=== PATIENT | male | born 2000 | race Caucasian/White ===

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

== ENCOUNTER → 2018-05-16 | Outpatient (CLI) | payer MEDICARE, OTHER ==
[2018-05-16 15:48] LABS: BASOPHILS ABSOLUTE AUTO 0.03 K/mm3 (0.00-0.23); BASOPHILS PERCENT AUTO 1 % (0-2); EOSINOPHILS ABSOLUTE AUTO 0.11 K/mm3 (0.00-0.68); EOSINOPHILS PERCENT AUTO 2 % (0-6); Hematocrit 42.9 % (37.0-53.0); Hemoglobin 13.9 g/dL (13.5-17.5); IMMATURE GRAN ABSOLUTE AUTO 0.01 K/mm3 (0.00-0.10); IMMATURE GRAN PERCENT AUTO 0 % (0-1); LYMPHOCYTES ABSOLUTE AUTO 1.73 K/mm3 (0.84-5.20); LYMPHOCYTES PERCENT AUTO 28 % (21-46); MONOCYTES ABSOLUTE AUTO 0.71 K/mm3 (0.16-1.47); MONOCYTES PERCENT AUTO 12 % (4-13); Mean Corpuscular HGB 26.9 pg (26.0-34.0); Mean Corpuscular HGB Conc 32.4 g/dL (31.5-36.5); Mean Corpuscular Volume 83 fL (80-100); Mean Platelet Volume 10.1 fL (9.1-12.4); NEUTROPHILS ABSOLUTE AUTO 3.54 K/mm3 (1.96-9.15); NEUTROPHILS PERCENT AUTO 58 % (41-73); Platelet Count 299 K/mm3 (150-400); RDW Coefficient Variation 19.8 % (11.7-14.2); RDW Standard Deviation 59.4 fL (35.1-46.3); Red Blood Cell Count 5.17 M/mm3 (4.30-5.90); White Blood Cell Count 6.13 K/mm3 (4.00-11.30)
[2018-05-16 16:00] LABS: Alanine Aminotransfer (ALT/SGP 54 U/L (12-78); Albumin, Blood 3.9 g/dL (3.4-5.0); Albumin/Globulin Ratio 1.1 (0.8-1.8); Alk Phos 63 U/L (40-126); Anion Gap 8 mmol/L (6-16); Aspartate Aminotrans (AST/SGOT 20 U/L (12-37); Bilirubin, Total 0.4 mg/dL (0.1-1.0); Blood Urea Nitrogen 14 mg/dL (8-24); Bun/Creatinine Ratio 21.5 (12.0-20.0); CO2, Blood 27 mmol/L (21-32); Chloride, Blood 104 mmol/L (98-108); Creatinine, Blood 0.65 mg/dL (0.60-1.20); Globulin, Blood 3.4 g/dL (2.2-4.0); Glomerular Filtration Rate >60 (60-); Glucose, Blood 89 mg/dL (70-99); Potassium, Blood 4.1 mmol/L (3.5-5.5); Sodium, Blood 139 mmol/L (136-145); Total Protein, Blood 7.3 g/dL (6.4-8.2)
== END | disposition home or self-care (01) ==
LOC: LAB EV 15:41 → LAB SHORT 15:41
PROVIDERS: Physician Assistant Medical
DX: R11.2 Nausea with vomiting, unspecified (principal)
CPT/HCPCS: 80053; 83690; 85025

== ENCOUNTER 2018-06-10 11:01 | Emergency (ER) | payer MEDICARE, OTHER ==
[~2018-06-10] VITALS: Ht 154.9 cm; Wt 73.5 kg
[2018-06-10] MEDS ORDERED: OLANZAPINE15 MG (12:18)
[2018-06-10] MEDS ORDERED: BUSP10 PO (12:18)
[2018-06-10 12:21] LABS: BASOPHILS ABSOLUTE AUTO 0.03 K/mm3 (0.00-0.23); BASOPHILS PERCENT AUTO 1 % (0-2); EOSINOPHILS ABSOLUTE AUTO 0.02 K/mm3 (0.00-0.68); EOSINOPHILS PERCENT AUTO 0 % (0-6); Hematocrit 42.9 % (37.0-53.0); Hemoglobin 13.8 g/dL (13.5-17.5); IMMATURE GRAN ABSOLUTE AUTO 0.01 K/mm3 (0.00-0.10); IMMATURE GRAN PERCENT AUTO 0 % (0-1); LYMPHOCYTES ABSOLUTE AUTO 1.49 K/mm3 (0.84-5.20); LYMPHOCYTES PERCENT AUTO 23 % (21-46); MONOCYTES ABSOLUTE AUTO 0.56 K/mm3 (0.16-1.47); MONOCYTES PERCENT AUTO 8 % (4-13); Mean Corpuscular HGB Conc 32.2 g/dL (31.5-36.5); Mean Corpuscular Volume 87 fL (80-100); Mean Platelet Volume 10.3 fL (9.1-12.4); NEUTROPHILS ABSOLUTE AUTO 4.52 K/mm3 (1.96-9.15); NEUTROPHILS PERCENT AUTO 68 % (41-73); Platelet Count 300 K/mm3 (150-400); RDW Coefficient Variation 16.9 % (11.7-14.2); RDW Standard Deviation 53.1 fL (35.1-46.3); Red Blood Cell Count 4.93 M/mm3 (4.30-5.90); White Blood Cell Count 6.63 K/mm3 (4.00-11.30)
[2018-06-10 12:33] LABS: Alanine Aminotransfer (ALT/SGP 67 U/L (12-78); Albumin/Globulin Ratio 1.2 (0.8-1.8); Alk Phos 62 U/L (50-136); Anion Gap 7 mmol/L (6-16); Aspartate Aminotrans (AST/SGOT 21 U/L (12-37); Bilirubin, Total 0.4 mg/dL (0.1-1.0); Blood Urea Nitrogen 9 mg/dL (8-24); Bun/Creatinine Ratio 18.3 (12.0-20.0); CO2, Blood 29 mmol/L (21-32); Chloride, Blood 107 mmol/L (98-108); Creatinine, Blood 0.49 mg/dL (0.60-1.20); Globulin, Blood 3.4 g/dL (2.2-4.0); Glomerular Filtration Rate >60 (60-); Glucose, Blood 102 mg/dL (70-99); Magnesium, Blood 2.4 mg/dL (1.6-2.4); Potassium, Blood 3.6 mmol/L (3.5-5.5); Sodium, Blood 143 mmol/L (136-145); Total Protein, Blood 7.4 g/dL (6.4-8.2)
[2018-06-10] MEDS ORDERED: HYDHCL25 PO (12:55)
== END 2018-06-10 13:25 | disposition home or self-care (01) ==
LOC: ER 11:01
PROVIDERS: Emergency Medicine
DX: E86.0 Dehydration (principal); F41.9 Anxiety disorder, unspecified; J45.909 Unspecified asthma, uncomplicated; Z88.8 Allergy status to other drugs, medicaments and biological substances; Z79.899 Other long term (current) drug therapy; Z79.52 Long term (current) use of systemic steroids
CPT/HCPCS: 36415; 51798; 80053; 83735; 85025; 96360; 99283-25; J7120

== ENCOUNTER 2018-06-16 17:29 | Emergency (ER) | payer MEDICARE, OTHER ==
[~2018-06-16] VITALS: Ht 149.9 cm; Wt 73.9 kg
[~2018-06-16 17:29] MED LIST changes: +BUSP10 PO; +HYDHCL25 PO; +OLANZAPINE15 MG
[2018-06-16] MEDS ORDERED: ESCI20 PO (17:49)
[2018-06-16] MEDS ORDERED: OMEPRAZOLE MAGN20 MG PO (17:49)
[2018-06-16] MEDS ORDERED: ARIP10 PO (17:49)
[2018-06-16] MEDS ORDERED: FERSU90EL PO (17:50)
[2018-06-16 18:10] LABS: Source, Urine Clean Catch
[2018-06-16 18:21] LABS: BASOPHILS ABSOLUTE AUTO 0.05 K/mm3 (0.00-0.23); BASOPHILS PERCENT AUTO 1 % (0-2); EOSINOPHILS ABSOLUTE AUTO 0.04 K/mm3 (0.00-0.68); EOSINOPHILS PERCENT AUTO 1 % (0-6); Hematocrit 45.9 % (37.0-53.0); Hemoglobin 14.8 g/dL (13.5-17.5); IMMATURE GRAN ABSOLUTE AUTO 0.04 K/mm3 (0.00-0.10); IMMATURE GRAN PERCENT AUTO 1 % (0-1); LYMPHOCYTES ABSOLUTE AUTO 2.11 K/mm3 (0.84-5.20); LYMPHOCYTES PERCENT AUTO 27 % (21-46); MONOCYTES ABSOLUTE AUTO 0.76 K/mm3 (0.16-1.47); MONOCYTES PERCENT AUTO 10 % (4-13); Mean Corpuscular HGB 28.2 pg (26.0-34.0); Mean Corpuscular HGB Conc 32.2 g/dL (31.5-36.5); Mean Corpuscular Volume 87 fL (80-100); Mean Platelet Volume 10.2 fL (9.1-12.4); NEUTROPHILS ABSOLUTE AUTO 4.92 K/mm3 (1.96-9.15); NEUTROPHILS PERCENT AUTO 62 % (41-73); Platelet Count 321 K/mm3 (150-400); RDW Coefficient Variation 16.3 % (11.7-14.2); RDW Standard Deviation 51.8 fL (35.1-46.3); Red Blood Cell Count 5.25 M/mm3 (4.30-5.90); White Blood Cell Count 7.92 K/mm3 (4.00-11.30)
[2018-06-16 18:24] LABS: Bilirubin, Urine Neg (Neg); Blood, Urine Neg (Neg); Glucose Qualitative, Urine Neg (Neg); Ketones, Urine Neg (Neg); Leukocyte Esterase, Urine Neg (Neg); Nitrite, Urine Neg (Neg); Protein, Urine Neg (Neg); Urobilinogen, Urine NORM (Normal)
[2018-06-16 18:31] LABS: Appearance, Urine Clear (Clear); Color, Urine Yellow (P-Yellow)
[2018-06-16 18:44] LABS: Alanine Aminotransfer (ALT/SGP 57 U/L (12-78); Albumin, Blood 4.1 g/dL (3.4-5.0); Albumin/Globulin Ratio 1.3 (0.8-1.8); Alk Phos 64 U/L (50-136); Anion Gap 3 mmol/L (6-16); Aspartate Aminotrans (AST/SGOT 21 U/L (12-37); Bilirubin, Total 0.5 mg/dL (0.1-1.0); Blood Urea Nitrogen 4 mg/dL (8-24); Bun/Creatinine Ratio 8.2 (12.0-20.0); CO2, Blood 29 mmol/L (21-32); Calcium, Blood 8.9 mg/dL (8.5-10.1); Chloride, Blood 106 mmol/L (98-108); Creatinine, Blood 0.49 mg/dL (0.60-1.20); Globulin, Blood 3.2 g/dL (2.2-4.0); Glomerular Filtration Rate >60 (60-); Glucose, Blood 84 mg/dL (70-99); Potassium, Blood 3.7 mmol/L (3.5-5.5); Sodium, Blood 138 mmol/L (136-145); Total Protein, Blood 7.3 g/dL (6.4-8.2)
[2018-06-16] MEDS ORDERED: KETO10 PO (20:00)
[2018-06-16] MEDS ORDERED: ONDA4ODT MM (20:01)
== END 2018-06-16 21:10 | disposition home or self-care (01) ==
LOC: ER 17:29
PROVIDERS: Emergency Medicine
DX: M62.838 Other muscle spasm (principal); R10.31 Right lower quadrant pain; M54.9 Dorsalgia, unspecified; R11.0 Nausea; Z79.899 Other long term (current) drug therapy
CPT/HCPCS: 36415; 74176; 80053; 81003; 83690; 85025; 96374; 96375; 96376; 99284-25; A9270-GY; J1170; J1885; J2405

== ENCOUNTER 2018-07-25 13:14 | Emergency (ER) | payer OTHER ==
[~2018-07-25] VITALS: Ht 152.4 cm; Wt 70.8 kg
[~2018-07-25 13:14] MED LIST changes: -BUSP10 PO; +KETO10 PO; +ONDA4ODT MM
[2018-07-25 14:02] LABS: BASOPHILS ABSOLUTE AUTO 0.04 K/mm3 (0.00-0.23); BASOPHILS PERCENT AUTO 1 % (0-2); EOSINOPHILS ABSOLUTE AUTO 0.16 K/mm3 (0.00-0.68); EOSINOPHILS PERCENT AUTO 2 % (0-6); Hematocrit 48.8 % (37.0-53.0); Hemoglobin 15.9 g/dL (13.5-17.5); IMMATURE GRAN ABSOLUTE AUTO 0.02 K/mm3 (0.00-0.10); IMMATURE GRAN PERCENT AUTO 0 % (0-1); LYMPHOCYTES ABSOLUTE AUTO 2.29 K/mm3 (0.84-5.20); LYMPHOCYTES PERCENT AUTO 31 % (21-46); MONOCYTES ABSOLUTE AUTO 0.75 K/mm3 (0.16-1.47); MONOCYTES PERCENT AUTO 10 % (4-13); Mean Corpuscular HGB 29.7 pg (26.0-34.0); Mean Corpuscular HGB Conc 32.6 g/dL (31.5-36.5); Mean Corpuscular Volume 91 fL (80-100); Mean Platelet Volume 10.5 fL (9.1-12.4); NEUTROPHILS ABSOLUTE AUTO 4.18 K/mm3 (1.96-9.15); NEUTROPHILS PERCENT AUTO 56 % (41-73); Platelet Count 280 K/mm3 (150-400); RDW Coefficient Variation 13.4 % (11.7-14.2); RDW Standard Deviation 45.1 fL (35.1-46.3); Red Blood Cell Count 5.36 M/mm3 (4.30-5.90); White Blood Cell Count 7.44 K/mm3 (4.00-11.30)
[2018-07-25 14:46] LABS: Alanine Aminotransfer (ALT/SGP 49 U/L (12-78); Albumin, Blood 4.2 g/dL (3.4-5.0); Albumin/Globulin Ratio 1.3 (0.8-1.8); Alk Phos 63 U/L (50-136); Anion Gap 6 mmol/L (6-16); Aspartate Aminotrans (AST/SGOT 18 U/L (12-37); Bilirubin, Total 0.6 mg/dL (0.1-1.0); Blood Urea Nitrogen 14 mg/dL (8-24); CO2, Blood 27 mmol/L (21-32); Calcium, Blood 9.5 mg/dL (8.5-10.1); Chloride, Blood 109 mmol/L (98-108); Creatinine, Blood 0.54 mg/dL (0.60-1.20); Globulin, Blood 3.3 g/dL (2.2-4.0); Glomerular Filtration Rate >60 (60-); Glucose, Blood 79 mg/dL (70-99); Potassium, Blood 4.3 mmol/L (3.5-5.5); Sodium, Blood 142 mmol/L (136-145); Total Protein, Blood 7.5 g/dL (6.4-8.2)
== END 2018-07-25 17:43 | disposition home or self-care (01) ==
LOC: ER 13:14
PROVIDERS: Physician Assistant
DX: R07.9 Chest pain, unspecified (principal); Z88.8 Allergy status to other drugs, medicaments and biological substances; Z91.040 Latex allergy status; Z79.899 Other long term (current) drug therapy; J45.909 Unspecified asthma, uncomplicated
CPT/HCPCS: 36415; 71260; 80053; 85025; 93005; 93010; 99284-25; Q9967

== ENCOUNTER 2018-08-16 02:33 | Emergency (ER) | payer OTHER ==
[~2018-08-16] VITALS: Ht 154.9 cm; Wt 74.8 kg
[2018-08-16 03:29] LABS: BASOPHILS ABSOLUTE AUTO 0.06 K/mm3 (0.00-0.23); BASOPHILS PERCENT AUTO 1 % (0-2); EOSINOPHILS ABSOLUTE AUTO 0.15 K/mm3 (0.00-0.68); EOSINOPHILS PERCENT AUTO 2 % (0-6); Hematocrit 48.4 % (37.0-53.0); Hemoglobin 15.9 g/dL (13.5-17.5); IMMATURE GRAN ABSOLUTE AUTO 0.03 K/mm3 (0.00-0.10); IMMATURE GRAN PERCENT AUTO 0 % (0-1); LYMPHOCYTES ABSOLUTE AUTO 3.67 K/mm3 (0.84-5.20); LYMPHOCYTES PERCENT AUTO 42 % (21-46); MONOCYTES ABSOLUTE AUTO 0.93 K/mm3 (0.16-1.47); MONOCYTES PERCENT AUTO 11 % (4-13); Mean Corpuscular HGB 30.1 pg (26.0-34.0); Mean Corpuscular HGB Conc 32.9 g/dL (31.5-36.5); Mean Corpuscular Volume 92 fL (80-100); Mean Platelet Volume 10.9 fL (9.1-12.4); NEUTROPHILS ABSOLUTE AUTO 3.94 K/mm3 (1.96-9.15); NEUTROPHILS PERCENT AUTO 45 % (41-73); Platelet Count 295 K/mm3 (150-400); RDW Coefficient Variation 12.9 % (11.7-14.2); RDW Standard Deviation 43.1 fL (35.1-46.3); Red Blood Cell Count 5.29 M/mm3 (4.30-5.90); White Blood Cell Count 8.78 K/mm3 (4.00-11.30)
[2018-08-16 03:44] LABS: Alanine Aminotransfer (ALT/SGP 43 U/L (12-78); Albumin, Blood 3.8 g/dL (3.4-5.0); Albumin/Globulin Ratio 1.2 (0.8-1.8); Alk Phos 76 U/L (50-136); Anion Gap 7 mmol/L (6-16); Aspartate Aminotrans (AST/SGOT 16 U/L (12-37); Bilirubin, Total 0.3 mg/dL (0.1-1.0); Blood Urea Nitrogen 13 mg/dL (8-24); Bun/Creatinine Ratio 15.3 (12.0-20.0); CO2, Blood 27 mmol/L (21-32); Calcium, Blood 9.2 mg/dL (8.5-10.1); Chloride, Blood 109 mmol/L (98-108); Creatinine, Blood 0.85 mg/dL (0.60-1.20); Globulin, Blood 3.2 g/dL (2.2-4.0); Glomerular Filtration Rate >60 (60-); Glucose, Blood 106 mg/dL (70-99); Potassium, Blood 4.1 mmol/L (3.5-5.5); Sodium, Blood 143 mmol/L (136-145); Troponin I <0.015 ng/mL (0.000-0.040)
[2018-08-16] MEDS ORDERED: BUSP10 PO (15:40)
[2018-08-16] MEDS ORDERED: ESCI20 PO (15:40)
[2018-08-16] MEDS ORDERED: Abilify5 MG PO (15:40)
[2018-08-16] MEDS ORDERED: FERSU300 PO (15:41)
[2018-08-16] MEDS ORDERED: OMEPRAZOLE MAGN20 MG PO (15:41)
[2018-08-16] MEDS ORDERED: HYDHCL25 PO (15:42)
[2018-08-16] MEDS ORDERED: GAVILAX17 GM PO (15:43)
== END 2018-08-16 05:51 | disposition home or self-care (01) ==
LOC: ER 02:33
PROVIDERS: Emergency Medicine
DX: R07.89 Other chest pain (principal); K44.9 Diaphragmatic hernia without obstruction or gangrene; Z88.8 Allergy status to other drugs, medicaments and biological substances; Z91.040 Latex allergy status; Z79.899 Other long term (current) drug therapy; J45.909 Unspecified asthma, uncomplicated
CPT/HCPCS: 71046; 80053; 84484; 85025; 93005; 93010; 96374; 96375; 99284-25; J1885; J3010

== ENCOUNTER 2018-08-16 13:40 | Observation (INO) | payer OTHER ==
[~2018-08-16] VITALS: Ht 152.4 cm; Wt 71.7 kg
[2018-08-16 14:39] LABS: BASOPHILS ABSOLUTE AUTO 0.04 K/mm3 (0.00-0.23); BASOPHILS PERCENT AUTO 0 % (0-2); EOSINOPHILS ABSOLUTE AUTO 0.07 K/mm3 (0.00-0.68); EOSINOPHILS PERCENT AUTO 1 % (0-6); Hematocrit 48.8 % (37.0-53.0); Hemoglobin 16.1 g/dL (13.5-17.5); IMMATURE GRAN ABSOLUTE AUTO 0.03 K/mm3 (0.00-0.10); IMMATURE GRAN PERCENT AUTO 0 % (0-1); LYMPHOCYTES ABSOLUTE AUTO 1.64 K/mm3 (0.84-5.20); LYMPHOCYTES PERCENT AUTO 14 % (21-46); MONOCYTES ABSOLUTE AUTO 0.96 K/mm3 (0.16-1.47); MONOCYTES PERCENT AUTO 8 % (4-13); Mean Corpuscular HGB 29.9 pg (26.0-34.0); Mean Corpuscular Volume 91 fL (80-100); Mean Platelet Volume 10.4 fL (9.1-12.4); NEUTROPHILS ABSOLUTE AUTO 8.92 K/mm3 (1.96-9.15); NEUTROPHILS PERCENT AUTO 77 % (41-73); Platelet Count 263 K/mm3 (150-400); RDW Coefficient Variation 12.9 % (11.7-14.2); RDW Standard Deviation 43.1 fL (35.1-46.3); Red Blood Cell Count 5.38 M/mm3 (4.30-5.90); White Blood Cell Count 11.66 K/mm3 (4.00-11.30)
[2018-08-16 15:05] LABS: Alanine Aminotransfer (ALT/SGP 45 U/L (12-78); Albumin/Globulin Ratio 1.2 (0.8-1.8); Alk Phos 75 U/L (50-136); Anion Gap 7 mmol/L (6-16); Aspartate Aminotrans (AST/SGOT 28 U/L (12-37); Bilirubin, Total 0.5 mg/dL (0.1-1.0); Blood Urea Nitrogen 17 mg/dL (8-24); Bun/Creatinine Ratio 29.8 (12.0-20.0); CO2, Blood 26 mmol/L (21-32); Chloride, Blood 108 mmol/L (98-108); Creatinine, Blood 0.57 mg/dL (0.60-1.20); Globulin, Blood 3.3 g/dL (2.2-4.0); Glomerular Filtration Rate >60 (60-); Glucose, Blood 89 mg/dL (70-99); Potassium, Blood 4.4 mmol/L (3.5-5.5); Sodium, Blood 141 mmol/L (136-145); Total Protein, Blood 7.3 g/dL (6.4-8.2)
[2018-08-16] MEDS ORDERED: ESCI20 PO (15:40)
[2018-08-16] MEDS ORDERED: BUSP10 PO (15:40)
[2018-08-16] MEDS ORDERED: Abilify5 MG PO (15:40)
[2018-08-16] MEDS ORDERED: FERSU300 PO (15:41)
[2018-08-16] MEDS ORDERED: OMEPRAZOLE MAGN20 MG PO (15:41)
[2018-08-16] MEDS ORDERED: HYDHCL25 PO (15:42)
[2018-08-16] MEDS ORDERED: GAVILAX17 GM PO (15:43)
[2018-08-17 04:51] LABS: BASOPHILS ABSOLUTE AUTO 0.04 K/mm3 (0.00-0.23); BASOPHILS PERCENT AUTO 1 % (0-2); EOSINOPHILS ABSOLUTE AUTO 0.21 K/mm3 (0.00-0.68); EOSINOPHILS PERCENT AUTO 3 % (0-6); Hematocrit 40.9 % (37.0-53.0); Hemoglobin 13.3 g/dL (13.5-17.5); IMMATURE GRAN ABSOLUTE AUTO 0.01 K/mm3 (0.00-0.10); IMMATURE GRAN PERCENT AUTO 0 % (0-1); LYMPHOCYTES ABSOLUTE AUTO 2.52 K/mm3 (0.84-5.20); LYMPHOCYTES PERCENT AUTO 39 % (21-46); MONOCYTES ABSOLUTE AUTO 0.62 K/mm3 (0.16-1.47); MONOCYTES PERCENT AUTO 10 % (4-13); Mean Corpuscular HGB 30.2 pg (26.0-34.0); Mean Corpuscular HGB Conc 32.5 g/dL (31.5-36.5); Mean Corpuscular Volume 93 fL (80-100); Mean Platelet Volume 10.7 fL (9.1-12.4); NEUTROPHILS ABSOLUTE AUTO 3.04 K/mm3 (1.96-9.15); NEUTROPHILS PERCENT AUTO 47 % (41-73); Platelet Count 222 K/mm3 (150-400); RDW Standard Deviation 44.5 fL (35.1-46.3); White Blood Cell Count 6.44 K/mm3 (4.00-11.30)
[2018-08-17 05:12] LABS: Alanine Aminotransfer (ALT/SGP 36 U/L (12-78); Albumin, Blood 3.2 g/dL (3.4-5.0); Albumin/Globulin Ratio 1.2 (0.8-1.8); Alk Phos 56 U/L (50-136); Anion Gap 5 mmol/L (6-16); Aspartate Aminotrans (AST/SGOT 20 U/L (12-37); Bilirubin, Total 0.8 mg/dL (0.1-1.0); Blood Urea Nitrogen 14 mg/dL (8-24); Bun/Creatinine Ratio 21.1 (12.0-20.0); CO2, Blood 28 mmol/L (21-32); Calcium, Blood 8.3 mg/dL (8.5-10.1); Chloride, Blood 110 mmol/L (98-108); Creatinine, Blood 0.67 mg/dL (0.60-1.20); Globulin, Blood 2.6 g/dL (2.2-4.0); Glomerular Filtration Rate >60 (60-); Glucose, Blood 99 mg/dL (70-99); Potassium, Blood 3.7 mmol/L (3.5-5.5); Sodium, Blood 143 mmol/L (136-145); Total Protein, Blood 5.8 g/dL (6.4-8.2)
--- NOTE | 2018-08-17 05:17 | NUR ---
Rn summary: Patient had just been admitted at the beginning of shift. He is alert and oriented. He is sometimes slower to answer questions. He comes from a assisted. His adoptive parents are his Grandparents. They visited at beginning of shift. Pt has cerebral palsy, he has had ilene hip pinning and spinal surgery with hardware fixation. He does have hand movement and uses his phone for games. Pt has an electric W/C that is in his room. He needs assist turning and positioning in bed. Pt is continent and uses the urinal. Skin is intact. He has had no c/o not being able to catch his breath. O2 sats are 93% on home CPAP. Lungs were clear. He has had no c/o nausia, tolerated clear liquids well. IV ABX as ordered. Call light in reach.
--- NOTE | 2018-08-17 18:51 | NUR ---
SHIFT SUMMARY NO ACUTE CHANGES. PATIENT DENIES, PAIN, NAUSEA, AND SHORTNESS OF BREATH. DIET ADVANCED TO REGULAR, TOLERATING WELL. PATIENT REPORTS HE IS FEELING BETTER. PATIENT NAPPED AND PLAYED ON HIS PHONE OFF AND ON DURING SHIFT. REPORT GIVEN TO SMITH MANZANARES.
--- NOTE | 2018-08-18 06:45 | NUR ---
Rn summary: Patient is alert and oriented. He has rested well tonight. He sleeps with cpap. Sats stay 93-95%. Pt is bradycardic with heart rate dropping down to the 40's while sleeping. Pt vital signs are stable otherwise. He denies any pain. IV ABX as ordered. Pt hopes to be DC'd today. He used the urinal voiding yellow urine. No cough and no c/o SOB. Call light in reach.
[2018-08-18] MEDS ORDERED: ACET325 PO (12:21)
[2018-08-18] MEDS ORDERED: Augmentin 875-1 EACH PO (12:21)
--- NOTE | 2018-08-18 14:43 | NUR ---
PT DISCHARGED AT 1405 WITH CAREGIVER TO TRANSPORT. PT HAD MEDICATIONS REVIEWED AND EDUCATIONAL MATERIAL SENT. MEDICATIONS FAXED TO [facility] PER CAREGIVER INSTRUCTIONS. PT AOX4 AND COOPERATIVE OF CARE. PT HAD LOOSE STOOLX4 THIS AM PRIOR TO LEAVING. NO DISTRESS NOTED. PT LIFTED INTO WHEELCHAIR TO LEAVE HOSPITAL. ALL PERSONAL BELONGINGS SENT WITH HIM.
== END 2018-08-18 14:06 | disposition home or self-care (01) ==
LOC: ER 13:40 → EDSTATUS 13:40 → MEDS 13:41 → ER 17:03 → MEDS 17:03 → ENPENDDIS 08-18 10:48 → MEDS 08-18 14:06
PROVIDERS: Physician Assistant; ADMIT Family Medicine
DX: R11.2 Nausea with vomiting, unspecified (principal); R19.7 Diarrhea, unspecified; J69.0 Pneumonitis due to inhalation of food and vomit; R06.03 Acute respiratory distress; G80.9 Cerebral palsy, unspecified; E86.0 Dehydration; K44.9 Diaphragmatic hernia without obstruction or gangrene; K21.9 Gastro-esophageal reflux disease without esophagitis; F32.9 Major depressive disorder, single episode, unspecified; Z79.899 Other long term (current) drug therapy; Z91.040 Latex allergy status; Z88.8 Allergy status to other drugs, medicaments and biological substances
CPT/HCPCS: 36415; 74019; 80053; 83605; 85025; 87040; 94762; 96365; 96375; 99284-25; C9113; G0378; J0456; J0696; J1650; J2543; J7030; J7050

== ENCOUNTER 2018-09-11 23:15 | Emergency (ER) | payer OTHER ==
[~2018-09-11] VITALS: Ht 154.9 cm; Wt 70.8 kg
[~2018-09-11 23:15] MED LIST changes: +ACET325 PO; +Abilify5 MG PO; +Augmentin 875-1 EACH PO; +BUSP10 PO; +ESCI20 PO; +FERSU300 PO; +GAVILAX17 GM PO; +OMEPRAZOLE MAGN20 MG PO
[2018-09-12 00:01] LABS: BASOPHILS ABSOLUTE AUTO 0.05 K/mm3 (0.00-0.23); BASOPHILS PERCENT AUTO 1 % (0-2); EOSINOPHILS ABSOLUTE AUTO 0.08 K/mm3 (0.00-0.68); EOSINOPHILS PERCENT AUTO 1 % (0-6); Hematocrit 47.9 % (37.0-53.0); Hemoglobin 16.1 g/dL (13.5-17.5); IMMATURE GRAN ABSOLUTE AUTO 0.01 K/mm3 (0.00-0.10); IMMATURE GRAN PERCENT AUTO 0 % (0-1); LYMPHOCYTES ABSOLUTE AUTO 2.74 K/mm3 (0.84-5.20); LYMPHOCYTES PERCENT AUTO 41 % (21-46); MONOCYTES ABSOLUTE AUTO 0.69 K/mm3 (0.16-1.47); MONOCYTES PERCENT AUTO 10 % (4-13); Mean Corpuscular HGB 30.3 pg (26.0-34.0); Mean Corpuscular HGB Conc 33.6 g/dL (31.5-36.5); Mean Corpuscular Volume 90 fL (80-100); Mean Platelet Volume 10.1 fL (9.1-12.4); NEUTROPHILS ABSOLUTE AUTO 3.07 K/mm3 (1.96-9.15); NEUTROPHILS PERCENT AUTO 46 % (41-73); Platelet Count 255 K/mm3 (150-400); RDW Coefficient Variation 12.8 % (11.7-14.2); RDW Standard Deviation 42.4 fL (35.1-46.3); Red Blood Cell Count 5.31 M/mm3 (4.30-5.90); White Blood Cell Count 6.64 K/mm3 (4.00-11.30)
[2018-09-12 00:24] LABS: Alanine Aminotransfer (ALT/SGP 46 U/L (12-78); Albumin, Blood 3.9 g/dL (3.4-5.0); Albumin/Globulin Ratio 1.2 (0.8-1.8); Alk Phos 65 U/L (50-136); Anion Gap 9 mmol/L (6-16); Aspartate Aminotrans (AST/SGOT 23 U/L (12-37); Bilirubin, Total 0.3 mg/dL (0.1-1.0); Blood Urea Nitrogen 5 mg/dL (8-24); Bun/Creatinine Ratio 8.9 (12.0-20.0); CO2, Blood 26 mmol/L (21-32); Calcium, Blood 8.6 mg/dL (8.5-10.1); Chloride, Blood 108 mmol/L (98-108); Creatinine, Blood 0.56 mg/dL (0.60-1.20); Globulin, Blood 3.2 g/dL (2.2-4.0); Glomerular Filtration Rate >60 (60-); Glucose, Blood 94 mg/dL (70-99); Potassium, Blood 3.8 mmol/L (3.5-5.5); Sodium, Blood 143 mmol/L (136-145); Total Protein, Blood 7.1 g/dL (6.4-8.2)
== END 2018-09-12 01:56 | disposition home or self-care (01) ==
LOC: ER 23:15
PROVIDERS: Emergency Medicine
DX: K44.9 Diaphragmatic hernia without obstruction or gangrene (principal); K76.0 Fatty (change of) liver, not elsewhere classified; R10.13 Epigastric pain; Z91.040 Latex allergy status; Z79.899 Other long term (current) drug therapy; J45.909 Unspecified asthma, uncomplicated
CPT/HCPCS: 74022; 80053; 83690; 85025; 96374; 99284-25; J1885; J2405

== ENCOUNTER 2018-09-14 20:06 | Emergency (ER) | payer OTHER ==
[~2018-09-14] VITALS: Ht 154.9 cm; Wt 72.6 kg
[2018-09-14 20:44] LABS: BASOPHILS ABSOLUTE AUTO 0.05 K/mm3 (0.00-0.23); BASOPHILS PERCENT AUTO 1 % (0-2); EOSINOPHILS ABSOLUTE AUTO 0.06 K/mm3 (0.00-0.68); EOSINOPHILS PERCENT AUTO 1 % (0-6); Hematocrit 48.1 % (37.0-53.0); Hemoglobin 16.2 g/dL (13.5-17.5); IMMATURE GRAN ABSOLUTE AUTO 0.02 K/mm3 (0.00-0.10); IMMATURE GRAN PERCENT AUTO 0 % (0-1); LYMPHOCYTES ABSOLUTE AUTO 2.12 K/mm3 (0.84-5.20); LYMPHOCYTES PERCENT AUTO 32 % (21-46); MONOCYTES ABSOLUTE AUTO 0.66 K/mm3 (0.16-1.47); MONOCYTES PERCENT AUTO 10 % (4-13); Mean Corpuscular HGB 30.4 pg (26.0-34.0); Mean Corpuscular HGB Conc 33.7 g/dL (31.5-36.5); Mean Corpuscular Volume 90 fL (80-100); Mean Platelet Volume 10.6 fL (9.1-12.4); NEUTROPHILS ABSOLUTE AUTO 3.72 K/mm3 (1.96-9.15); NEUTROPHILS PERCENT AUTO 56 % (41-73); Platelet Count 245 K/mm3 (150-400); RDW Coefficient Variation 12.9 % (11.7-14.2); RDW Standard Deviation 42.5 fL (35.1-46.3); Red Blood Cell Count 5.33 M/mm3 (4.30-5.90); White Blood Cell Count 6.63 K/mm3 (4.00-11.30)
[2018-09-14 21:04] LABS: Alanine Aminotransfer (ALT/SGP 84 U/L (12-78); Albumin/Globulin Ratio 1.2 (0.8-1.8); Alk Phos 68 U/L (50-136); Anion Gap 7 mmol/L (6-16); Aspartate Aminotrans (AST/SGOT 48 U/L (12-37); Bilirubin, Total 0.4 mg/dL (0.1-1.0); Blood Urea Nitrogen 10 mg/dL (8-24); Bun/Creatinine Ratio 18.7 (12.0-20.0); CO2, Blood 27 mmol/L (21-32); Calcium, Blood 9.1 mg/dL (8.5-10.1); Chloride, Blood 108 mmol/L (98-108); Creatinine, Blood 0.54 mg/dL (0.60-1.20); Globulin, Blood 3.3 g/dL (2.2-4.0); Glomerular Filtration Rate >60 (60-); Glucose, Blood 83 mg/dL (70-99); Potassium, Blood 4.1 mmol/L (3.5-5.5); Sodium, Blood 142 mmol/L (136-145); Total Protein, Blood 7.3 g/dL (6.4-8.2)
[2018-09-14] MEDS ORDERED: ONDA4ODT MM (21:34)
== END 2018-09-14 22:37 | disposition home or self-care (01) ==
LOC: ER 20:06
PROVIDERS: Emergency Medicine
DX: E86.0 Dehydration (principal); R11.2 Nausea with vomiting, unspecified; R19.7 Diarrhea, unspecified; K21.9 Gastro-esophageal reflux disease without esophagitis; J45.909 Unspecified asthma, uncomplicated; Z88.8 Allergy status to other drugs, medicaments and biological substances; Z91.040 Latex allergy status; Z79.899 Other long term (current) drug therapy
CPT/HCPCS: 36415; 80053; 83690; 85025; 96361; 96374; 99284-25; A9270-GY; J2550; J7030

== ENCOUNTER 2018-09-22 21:44 | Emergency (ER) | payer OTHER ==
[~2018-09-22] VITALS: Ht 154.9 cm; Wt 76.2 kg
[2018-09-22 22:37] LABS: BASOPHILS ABSOLUTE AUTO 0.06 K/mm3 (0.00-0.23); BASOPHILS PERCENT AUTO 1 % (0-2); EOSINOPHILS ABSOLUTE AUTO 0.14 K/mm3 (0.00-0.68); EOSINOPHILS PERCENT AUTO 2 % (0-6); Hematocrit 46.6 % (37.0-53.0); Hemoglobin 15.8 g/dL (13.5-17.5); IMMATURE GRAN ABSOLUTE AUTO 0.01 K/mm3 (0.00-0.10); IMMATURE GRAN PERCENT AUTO 0 % (0-1); LYMPHOCYTES PERCENT AUTO 42 % (21-46); MONOCYTES ABSOLUTE AUTO 0.82 K/mm3 (0.16-1.47); MONOCYTES PERCENT AUTO 11 % (4-13); Mean Corpuscular HGB 29.9 pg (26.0-34.0); Mean Corpuscular HGB Conc 33.9 g/dL (31.5-36.5); Mean Corpuscular Volume 88 fL (80-100); Mean Platelet Volume 10.5 fL (9.1-12.4); NEUTROPHILS ABSOLUTE AUTO 3.15 K/mm3 (1.96-9.15); NEUTROPHILS PERCENT AUTO 44 % (41-73); Platelet Count 256 K/mm3 (150-400); RDW Coefficient Variation 12.9 % (11.7-14.2); Red Blood Cell Count 5.28 M/mm3 (4.30-5.90); White Blood Cell Count 7.18 K/mm3 (4.00-11.30)
[2018-09-22 22:59] LABS: Alanine Aminotransfer (ALT/SGP 63 U/L (12-78); Albumin, Blood 3.8 g/dL (3.4-5.0); Albumin/Globulin Ratio 1.2 (0.8-1.8); Alk Phos 63 U/L (50-136); Anion Gap 7 mmol/L (6-16); Aspartate Aminotrans (AST/SGOT 24 U/L (12-37); Bilirubin, Total 0.4 mg/dL (0.1-1.0); Blood Urea Nitrogen 13 mg/dL (8-24); Bun/Creatinine Ratio 14.3 (12.0-20.0); CO2, Blood 26 mmol/L (21-32); Calcium, Blood 9.5 mg/dL (8.5-10.1); Chloride, Blood 106 mmol/L (98-108); Creatinine, Blood 0.91 mg/dL (0.60-1.20); Globulin, Blood 3.3 g/dL (2.2-4.0); Glomerular Filtration Rate >60 (60-); Glucose, Blood 102 mg/dL (70-99); Potassium, Blood 4.4 mmol/L (3.5-5.5); Sodium, Blood 139 mmol/L (136-145); Total Protein, Blood 7.1 g/dL (6.4-8.2)
[2018-09-22 23:06] LABS: Source, Urine Clean Catch
[2018-09-22 23:10] LABS: Bilirubin, Urine Neg (Neg); Blood, Urine Neg (Neg); Glucose Qualitative, Urine Neg (Neg); Ketones, Urine Neg (Neg); Leukocyte Esterase, Urine Neg (Neg); Nitrite, Urine Neg (Neg); Protein, Urine Neg (Neg); Urobilinogen, Urine NORM (Normal)
[2018-09-22 23:15] LABS: Appearance, Urine Clear (Clear); Color, Urine Yellow (P-Yellow)
[2018-09-23] MEDS ORDERED: Colace100 MG PO (01:06)
== END 2018-09-23 03:16 | disposition home or self-care (01) ==
LOC: ER 21:44
PROVIDERS: Emergency Medicine
DX: R10.9 Unspecified abdominal pain (principal); R11.2 Nausea with vomiting, unspecified; J45.909 Unspecified asthma, uncomplicated; Z91.040 Latex allergy status; Z88.8 Allergy status to other drugs, medicaments and biological substances; Z79.899 Other long term (current) drug therapy
CPT/HCPCS: 36415; 74177; 80053; 81003; 83690; 85025; 96361; 96374-59; 96375; 99284-25; J1170; J2550; J7030; Q9967

== ENCOUNTER 2018-09-29 18:04 | Observation (INO) | payer OTHER ==
[~2018-09-29] VITALS: Ht 154.9 cm; Wt 78.4 kg
[~2018-09-29 18:04] MED LIST changes: +Colace100 MG PO
[2018-09-29 18:37] LABS: BASOPHILS ABSOLUTE AUTO 0.06 K/mm3 (0.00-0.23); BASOPHILS PERCENT AUTO 1 % (0-2); EOSINOPHILS ABSOLUTE AUTO 0.16 K/mm3 (0.00-0.68); EOSINOPHILS PERCENT AUTO 2 % (0-6); Hematocrit 46.3 % (37.0-53.0); Hemoglobin 15.5 g/dL (13.5-17.5); IMMATURE GRAN ABSOLUTE AUTO 0.04 K/mm3 (0.00-0.10); IMMATURE GRAN PERCENT AUTO 1 % (0-1); LYMPHOCYTES ABSOLUTE AUTO 2.67 K/mm3 (0.84-5.20); LYMPHOCYTES PERCENT AUTO 33 % (21-46); MONOCYTES ABSOLUTE AUTO 0.69 K/mm3 (0.16-1.47); MONOCYTES PERCENT AUTO 8 % (4-13); Mean Corpuscular HGB 30.3 pg (26.0-34.0); Mean Corpuscular HGB Conc 33.5 g/dL (31.5-36.5); Mean Platelet Volume 10.2 fL (9.1-12.4); NEUTROPHILS ABSOLUTE AUTO 4.56 K/mm3 (1.96-9.15); NEUTROPHILS PERCENT AUTO 56 % (41-73); Platelet Count 290 K/mm3 (150-400); RDW Standard Deviation 43.5 fL (35.1-46.3); Red Blood Cell Count 5.11 M/mm3 (4.30-5.90); White Blood Cell Count 8.18 K/mm3 (4.00-11.30)
[2018-09-29 18:39] LABS: Mean Corpuscular Volume 91 fL (80-100)
[2018-09-29] MEDS ORDERED: ALBU90OI INH (18:46)
[2018-09-29] MEDS ORDERED: GUAI200 PO (18:46)
[2018-09-29 19:10] LABS: Ethanol (Alcohol), Blood, Med <3 mg/dL; Salicylate <1.7 mg/dL (2.8-20.0)
[2018-09-29 19:11] LABS: Alanine Aminotransfer (ALT/SGP 56 U/L (12-78); Albumin, Blood 3.7 g/dL (3.4-5.0); Albumin/Globulin Ratio 1.1 (0.8-1.8); Alk Phos 65 U/L (50-136); Anion Gap 6 mmol/L (6-16); Aspartate Aminotrans (AST/SGOT 30 U/L (12-37); Bilirubin, Total 0.3 mg/dL (0.1-1.0); Blood Urea Nitrogen 14 mg/dL (8-24); Bun/Creatinine Ratio 30.2 (12.0-20.0); CO2, Blood 25 mmol/L (21-32); Chloride, Blood 109 mmol/L (98-108); Creatinine, Blood 0.46 mg/dL (0.60-1.20); Globulin, Blood 3.3 g/dL (2.2-4.0); Glomerular Filtration Rate >60 (60-); Glucose, Blood 120 mg/dL (70-99); Potassium, Blood 3.6 mmol/L (3.5-5.5); Sodium, Blood 140 mmol/L (136-145)
[2018-09-29 19:15] LABS: Acetaminophen, Random <2.0 ug/mL (10.0-30.0)
[2018-09-29 19:33] LABS: Source, Urine Clean Catch
[2018-09-29 19:47] LABS: Appearance, Urine Clear (Clear); Bilirubin, Urine Neg (Neg); Blood, Urine Neg (Neg); Color, Urine Yellow (P-Yellow); Glucose Qualitative, Urine Neg (Neg); Ketones, Urine Neg (Neg); Leukocyte Esterase, Urine Neg (Neg); Nitrite, Urine Neg (Neg); Protein, Urine 2+ (Neg); Urobilinogen, Urine NORM (Normal)
[2018-09-29 19:48] LABS: Bacteria Few /hpf; Red Blood Cells, Urine 0-2 /hpf (0-2); Squamous Epithelial Cells Few /hpf (Few); White Blood Cells, Urine 0-2 /hpf (0-5)
[2018-09-29 19:53] LABS: U Amphetamine Screen Not Detected; U Barbituate Screen Not Detected; U Benzodiazapine Screen Not Detected; U Buprenorphine Screen Not Detected; U Cannabinoids Screen Not Detected; U Cocaine Screen Not Detected; U Methadone Screen Not Detected; U Methamphetamine Screen Not Detected; U Opiates Screen Not Detected; U Oxycodone Screen Not Detected; U Phencyclidine Screen Not Detected
[2018-09-29 19:54] LABS: U Propoxyphene Screen Not Detected
[2018-09-29] MEDS ORDERED: Anti-Diarrheal2 MG PO (21:57)
[2018-09-29] MEDS ORDERED: A AND D OINTM42.5 GM TOP (22:01)
[2018-09-29] MEDS ORDERED: Triple Antibio1 EACH TOP (22:01)
--- NOTE | 2018-09-30 05:36 | NUR ---
PT TRANSFER TO PCU 8 Pt arrives to PCU 8 at 0323 accompanied by LENS INSPECTOR and home caregiver. This pt is admitted for SI. Room has been cleared following SI precautions, remote monitoring able to see and hear pt, verified over vocera confirmation. Pt with VSS. Pt arrives in personal power wheelchair, portable luda lift used to assist pt from chair to bed. Pt is cooperative with care, tearful and states to this RN "I am so sad that I hurt my family with my decisions". This RN sat with pt and encouraged pt to express feelings, actively listened, and pt with smile and laughter by end of conversation. Pt with extreme emotions changing quickly from laughter to crying. Call light in reach, pt monitored frequently by RN and monitored remotely. Uses urinal with assistance. One epsidose of nausea with vomiting. medicated with zofran per orders. No further c/o nausea/vomiting. Attempted to place PIV this shift, pt refuses IV stating "I hate needles" and crying "No, no, no". MD Styles called and notifed, medications changed to PO at this time. See admission assessment for detailed assessment. Will continue to monitor until shift change.
--- NOTE | 2018-09-30 10:27 | NUR ---
PT CALLS NURSE TO ROOM. EXPRESSES THAT HE DOES NOT WANT TO HURT HIMSELF ANY LONGER AND THAT (I JUST GET THAT WAY SOMETIMES I DONT MEAN TO HURT MYSELF) PT USES CALL LIGHT REPEATEDLY OVER NEXT HOUR CALLING NUMEROUS TIMES TO ASK TO GO HOME. COMES TO PCU SHE WILL MEET WITH PATIENT AND HIS MOTHER WHEN SHE COMES THIS AFTERNOON. THIS RN IS TO CALL HER WHEN MOTHER GETS HERE. PT AGITATED WANTING TO GET UP TO CHAIR. WILL SEND FOR GERALDINE LIFT AND GET PT UP WHEN IT ARRIVES.
--- NOTE | 2018-09-30 11:22 | NUR ---
Patient is sitting up in bed and alert. Patient is a bit guarded but does admit to a suicidal thoughts and states that it stems from negative thoughts and mounting drama at his home. Patient tells me that he is a Denominational and so I investigate with patient how that lynn may help in dealing with his negative thoughts and emotions. Patient expresses that he can not really think of what a better life could could look like and so I talk with patient about what hope is and about the importance of having clear vision and something to aim at, can improve his outlook. I listen empathically, reinforce helpful attitudes and practices, exploresources of dignity and meaning and provide pastoral financial services counselor and prayer. Patient responds well and shows signs of restored lynn.
--- NOTE | 2018-09-30 14:29 | NUR ---
PT TO BE DISCHARGED BACK TO [facility]. CRYSTAL HORSERADISH MAKER AT THIS HOME COMES TO SEE PATEINT AND HE WILL BE GOING BACK WITH NEW LIMITATIONS ON CORDS AND LINES. MAINTENANCE IS PUTTTING SAFETY SCREWS ON LINES AND CORDS TO ATTACH THEM TO [place] SO THEY CANNOT BE PULLED AROUND PT'S BODY. PT VERBALIZED UNDERSTANDING. HE IS CURRENLTY WAITING IN ROOM FOR SOMEONE FROM THIS HOME TO BRING HIM A CHANGE OF CLOTHING AND TO TAKE HIM BACK TO THE HOUSE.
== END 2018-09-30 15:16 | disposition home or self-care (01) ==
LOC: ER 18:04 → ERHOLD 18:05 → PCU 18:05
PROVIDERS: Physician Assistant; ADMIT Internal Medicine
DX: F32.9 Major depressive disorder, single episode, unspecified (principal); F25.9 Schizoaffective disorder, unspecified; G80.1 Spastic diplegic cerebral palsy; K21.9 Gastro-esophageal reflux disease without esophagitis; K76.0 Fatty (change of) liver, not elsewhere classified; K44.9 Diaphragmatic hernia without obstruction or gangrene; G83.9 Paralytic syndrome, unspecified; Z79.899 Other long term (current) drug therapy; Z88.8 Allergy status to other drugs, medicaments and biological substances; Z91.040 Latex allergy status; Z98.890 Other specified postprocedural states; Z87.891 Personal history of nicotine dependence
CPT/HCPCS: 36415; 80053; 81001; 84443; 85025; 94660; 96372; 99285; G0378; G0480; J1650; Q3014

== ENCOUNTER 2018-10-03 19:25 | Emergency (ER) | payer OTHER ==
[~2018-10-03] VITALS: Ht 154.9 cm; Wt 76.2 kg
[~2018-10-03 19:25] MED LIST changes: +A AND D OINTM42.5 GM TOP; +ALBU90OI INH; +Anti-Diarrheal2 MG PO; +GUAI200 PO; +Triple Antibio1 EACH TOP
== END 2018-10-03 22:03 | disposition home or self-care (01) ==
LOC: ER 19:25
DX: R07.89 Other chest pain (principal); Z88.8 Allergy status to other drugs, medicaments and biological substances; Z91.040 Latex allergy status; Z79.899 Other long term (current) drug therapy; J45.909 Unspecified asthma, uncomplicated; Z87.891 Personal history of nicotine dependence
CPT/HCPCS: 71046; 93005; 93010; 96372; 99284-25; J1885

== ENCOUNTER 2018-10-04 21:36 | Emergency (ER) | payer OTHER ==
[~2018-10-04] VITALS: Ht 154.9 cm; Wt 76.4 kg
[2018-10-04 23:15] LABS: BASOPHILS ABSOLUTE AUTO 0.08 K/mm3 (0.00-0.23); BASOPHILS PERCENT AUTO 1 % (0-2); EOSINOPHILS ABSOLUTE AUTO 0.31 K/mm3 (0.00-0.68); EOSINOPHILS PERCENT AUTO 3 % (0-6); Hematocrit 44.6 % (37.0-53.0); Hemoglobin 14.8 g/dL (13.5-17.5); IMMATURE GRAN ABSOLUTE AUTO 0.02 K/mm3 (0.00-0.10); IMMATURE GRAN PERCENT AUTO 0 % (0-1); LYMPHOCYTES PERCENT AUTO 30 % (21-46); MONOCYTES PERCENT AUTO 10 % (4-13); Mean Corpuscular HGB 30.1 pg (26.0-34.0); Mean Corpuscular HGB Conc 33.2 g/dL (31.5-36.5); Mean Corpuscular Volume 91 fL (80-100); Mean Platelet Volume 10.3 fL (9.1-12.4); NEUTROPHILS ABSOLUTE AUTO 6.34 K/mm3 (1.96-9.15); NEUTROPHILS PERCENT AUTO 57 % (41-73); Platelet Count 298 K/mm3 (150-400); RDW Coefficient Variation 13.1 % (11.7-14.2); RDW Standard Deviation 43.4 fL (35.1-46.3); Red Blood Cell Count 4.91 M/mm3 (4.30-5.90); White Blood Cell Count 11.15 K/mm3 (4.00-11.30)
[2018-10-04 23:32] LABS: Alanine Aminotransfer (ALT/SGP 44 U/L (12-78); Albumin, Blood 3.5 g/dL (3.4-5.0); Albumin/Globulin Ratio 1.1 (0.8-1.8); Alk Phos 55 U/L (50-136); Anion Gap 6 mmol/L (6-16); Aspartate Aminotrans (AST/SGOT 20 U/L (12-37); Bilirubin, Total 0.3 mg/dL (0.1-1.0); Blood Urea Nitrogen 15 mg/dL (8-24); Bun/Creatinine Ratio 27.3 (12.0-20.0); CO2, Blood 28 mmol/L (21-32); Calcium, Blood 9.1 mg/dL (8.5-10.1); Chloride, Blood 108 mmol/L (98-108); Creatinine, Blood 0.55 mg/dL (0.60-1.20); Globulin, Blood 3.2 g/dL (2.2-4.0); Glomerular Filtration Rate >60 (60-); Glucose, Blood 87 mg/dL (70-99); Potassium, Blood 4.2 mmol/L (3.5-5.5); Sodium, Blood 142 mmol/L (136-145); Total Protein, Blood 6.7 g/dL (6.4-8.2)
[2018-10-05] MEDS ORDERED: ONDA4ODT MM (00:35)
== END 2018-10-05 01:54 | disposition home or self-care (01) ==
LOC: ER 21:36
PROVIDERS: Emergency Medicine
DX: K44.9 Diaphragmatic hernia without obstruction or gangrene (principal); J45.909 Unspecified asthma, uncomplicated; K76.0 Fatty (change of) liver, not elsewhere classified; G80.9 Cerebral palsy, unspecified; Z91.040 Latex allergy status; Z88.8 Allergy status to other drugs, medicaments and biological substances; Z79.899 Other long term (current) drug therapy; Z87.891 Personal history of nicotine dependence
CPT/HCPCS: 36415; 74177; 80053; 83690; 85025; 96361; 96374-59; 99284-25; J2405; J7030; Q9967

== ENCOUNTER 2018-10-13 21:29 | Emergency (ER) | payer OTHER ==
[~2018-10-13] VITALS: Ht 154.9 cm; Wt 76.2 kg
[2018-10-13 22:45] LABS: Calcium, Ionized (POC) 1.19 mmol/L (1.10-1.46); Chloride (POC) 109 mmol/L (98-108); Creatinine (POC) 0.5 mg/dL (0.8-1.3); Glucose (ISTAT POC) 113 mg/dL (70-99); Hemoglobin (POC) 12.2 g/dL (13.5-17.5); Potassium (POC) 3.7 mmol/L (3.5-5.5); Sodium (POC) 134 mmol/L (135-148); Total CO2 (POC) 27 mmol/L (21-32)
[2018-10-13] MEDS ORDERED: ONDA4ODT MM (23:12)
== END 2018-10-14 01:41 | disposition home or self-care (01) ==
LOC: ER 21:29
PROVIDERS: Emergency Medicine
DX: K44.9 Diaphragmatic hernia without obstruction or gangrene (principal); J45.909 Unspecified asthma, uncomplicated; Z87.891 Personal history of nicotine dependence; Z79.899 Other long term (current) drug therapy
CPT/HCPCS: 36415; 80047; 85014; 96374; 99283-25; J2405

== ENCOUNTER 2018-10-16 20:42 | Emergency (ER) | payer OTHER ==
[~2018-10-16] VITALS: Ht 154.9 cm; Wt 76.2 kg
[2018-10-16 21:33] LABS: BASOPHILS ABSOLUTE AUTO 0.06 K/mm3 (0.00-0.23); BASOPHILS PERCENT AUTO 1 % (0-2); EOSINOPHILS ABSOLUTE AUTO 0.18 K/mm3 (0.00-0.68); EOSINOPHILS PERCENT AUTO 2 % (0-6); Hematocrit 45.5 % (37.0-53.0); Hemoglobin 15.2 g/dL (13.5-17.5); IMMATURE GRAN ABSOLUTE AUTO 0.03 K/mm3 (0.00-0.10); IMMATURE GRAN PERCENT AUTO 0 % (0-1); LYMPHOCYTES ABSOLUTE AUTO 2.46 K/mm3 (0.84-5.20); LYMPHOCYTES PERCENT AUTO 26 % (21-46); MONOCYTES ABSOLUTE AUTO 0.86 K/mm3 (0.16-1.47); MONOCYTES PERCENT AUTO 9 % (4-13); Mean Corpuscular HGB 30.2 pg (26.0-34.0); Mean Corpuscular HGB Conc 33.4 g/dL (31.5-36.5); Mean Corpuscular Volume 90 fL (80-100); Mean Platelet Volume 10.2 fL (9.1-12.4); NEUTROPHILS ABSOLUTE AUTO 5.91 K/mm3 (1.96-9.15); NEUTROPHILS PERCENT AUTO 62 % (41-73); Platelet Count 307 K/mm3 (150-400); RDW Standard Deviation 42.3 fL (35.1-46.3); Red Blood Cell Count 5.04 M/mm3 (4.30-5.90)
[2018-10-16 21:53] LABS: Alanine Aminotransfer (ALT/SGP 51 U/L (12-78); Albumin, Blood 3.8 g/dL (3.4-5.0); Albumin/Globulin Ratio 1.1 (0.8-1.8); Alk Phos 65 U/L (50-136); Anion Gap 6 mmol/L (6-16); Aspartate Aminotrans (AST/SGOT 23 U/L (12-37); Bilirubin, Total 0.3 mg/dL (0.1-1.0); Blood Urea Nitrogen 13 mg/dL (8-24); Bun/Creatinine Ratio 26.9 (12.0-20.0); CO2, Blood 26 mmol/L (21-32); Calcium, Blood 9.2 mg/dL (8.5-10.1); Chloride, Blood 109 mmol/L (98-108); Creatinine, Blood 0.48 mg/dL (0.60-1.20); Globulin, Blood 3.5 g/dL (2.2-4.0); Glomerular Filtration Rate >60 (60-); Glucose, Blood 93 mg/dL (70-99); Potassium, Blood 4.3 mmol/L (3.5-5.5); Sodium, Blood 141 mmol/L (136-145); Total Protein, Blood 7.3 g/dL (6.4-8.2); Troponin I <0.015 ng/mL (0.000-0.040)
== END 2018-10-16 23:09 | disposition home or self-care (01) ==
LOC: ER 20:42
PROVIDERS: Emergency Medicine
DX: R06.02 Shortness of breath (principal); K21.9 Gastro-esophageal reflux disease without esophagitis; Z88.8 Allergy status to other drugs, medicaments and biological substances; Z91.040 Latex allergy status; Z79.899 Other long term (current) drug therapy
CPT/HCPCS: 36415; 71046; 80053; 84484; 85025; 99285-25

== ENCOUNTER 2018-10-20 09:53 | Day surgery (SDC) | payer OTHER ==
--- NOTE | 2018-10-20 12:15 | NUR ---
10/20/18 1215 Aydee Courtney 1ST IV ATTEMPT IN RW UNSUCCESSFUL, UNABLE TO CAPTURE VEIN, STARTED BY LEIGHTON CUNNINGHAM/ 2ND IV ATTEMPT IN LW UNSUCCESSFUL, INFILTRATED, STARTED BY LEIGHTON CUNNINGHAM 3RD IV ATTEMPT IN LAC UNSUCCESSFUL, UNABLE TO CAPTURE VEIN. STARTED BY LEIGHTON HOBBS. 4TH ATTEMPT IN LH SUCCESSFUL, STARTED BY LEIGHTON HOBBS
--- NOTE | 2018-10-20 12:36 | NUR ---
10/20/18 1236 Iam Yin REPORT RECEIVED FROM BILL MANZANARES AND TANIA RN AT 1230. PT RESTING ON BED WITH OXYGEN VIA FACE MASK AT 10L. PT HAS 100% O2 SAT WITH 10L O2 VIA NC. O2 WAS DROPPED TO 8L VIA FACEMASK. PT O2 SAT AT THIS TIME IS 98%. PT RESTING, SLEEPING, BUT RESPONDS WELL TO VOICE AND IS ABLE TO FOLLOW SIMPLE COMMANDS. FAMILY MEMBERS AT BEDSIDE. VS WNL. WILL CONTINUE TO MONITOR.
== END 2018-10-20 13:20 | disposition home or self-care (01) ==
LOC: ORSCSDS 09:53
PROVIDERS: Surgery
PROC: 0DB68ZX Excision of Stomach, Via Natural or Artificial Opening Endoscopic, Diagnostic (ICD-10-PCS; principal; 2018-10-20 11:00)
DX: K29.70 Gastritis, unspecified, without bleeding (principal); K44.9 Diaphragmatic hernia without obstruction or gangrene; G80.9 Cerebral palsy, unspecified; G47.33 Obstructive sleep apnea (adult) (pediatric); J45.909 Unspecified asthma, uncomplicated; G40.909 Epilepsy, unspecified, not intractable, without status epilepticus; Z79.899 Other long term (current) drug therapy
CPT/HCPCS: 88305; J2250; J2704; J7120

== ENCOUNTER 2018-11-09 22:31 | Emergency (ER) | payer OTHER ==
[~2018-11-09] VITALS: Ht 154.9 cm; Wt 76.2 kg
== END 2018-11-09 23:27 | disposition home or self-care (01) ==
LOC: ER 22:31
DX: F32.9 Major depressive disorder, single episode, unspecified (principal); J45.909 Unspecified asthma, uncomplicated; Z87.891 Personal history of nicotine dependence; Z91.040 Latex allergy status; Z88.8 Allergy status to other drugs, medicaments and biological substances; Z79.899 Other long term (current) drug therapy; Z79.51 Long term (current) use of inhaled steroids
CPT/HCPCS: 99284

== ENCOUNTER 2018-11-27 17:20 | Emergency (ER) | payer OTHER ==
[~2018-11-27] VITALS: Ht 154.9 cm; Wt 65.8 kg
[2018-11-27 18:18] LABS: BASOPHILS ABSOLUTE AUTO 0.04 K/mm3 (0.00-0.23); BASOPHILS PERCENT AUTO 1 % (0-2); EOSINOPHILS ABSOLUTE AUTO 0.16 K/mm3 (0.00-0.68); EOSINOPHILS PERCENT AUTO 2 % (0-6); Hematocrit 44.2 % (37.0-53.0); IMMATURE GRAN ABSOLUTE AUTO 0.02 K/mm3 (0.00-0.10); IMMATURE GRAN PERCENT AUTO 0 % (0-1); LYMPHOCYTES PERCENT AUTO 25 % (21-46); MONOCYTES ABSOLUTE AUTO 0.73 K/mm3 (0.16-1.47); MONOCYTES PERCENT AUTO 9 % (4-13); Mean Corpuscular HGB 28.6 pg (26.0-34.0); Mean Corpuscular HGB Conc 31.7 g/dL (31.5-36.5); Mean Corpuscular Volume 90 fL (80-100); Mean Platelet Volume 10.8 fL (9.1-12.4); NEUTROPHILS PERCENT AUTO 63 % (41-73); Platelet Count 299 K/mm3 (150-400); RDW Coefficient Variation 12.6 % (11.7-14.2); RDW Standard Deviation 41.3 fL (35.1-46.3); White Blood Cell Count 7.75 K/mm3 (4.00-11.30)
[2018-11-27 18:33] LABS: Alanine Aminotransfer (ALT/SGP 33 U/L (12-78); Albumin, Blood 3.8 g/dL (3.4-5.0); Albumin/Globulin Ratio 1.1 (0.8-1.8); Alk Phos 59 U/L (50-136); Anion Gap 5 mmol/L (6-16); Aspartate Aminotrans (AST/SGOT 22 U/L (12-37); Bilirubin, Total 0.3 mg/dL (0.1-1.0); Blood Urea Nitrogen 15 mg/dL (8-24); CO2, Blood 26 mmol/L (21-32); Calcium, Blood 9.2 mg/dL (8.5-10.1); Chloride, Blood 109 mmol/L (98-108); Creatinine, Blood 0.52 mg/dL (0.60-1.20); Globulin, Blood 3.4 g/dL (2.2-4.0); Glomerular Filtration Rate >60 (60-); Glucose, Blood 101 mg/dL (70-99); Potassium, Blood 3.5 mmol/L (3.5-5.5); Sodium, Blood 140 mmol/L (136-145); Total Protein, Blood 7.2 g/dL (6.4-8.2)
[2018-11-27] MEDS ORDERED: Pedi-Dri 100,0060 GM TOP (19:42)
[2018-11-27] MEDS ORDERED: BUSP10 PO (19:43)
[2018-11-27] MEDS ORDERED: ESCI20 PO (19:44)
[2018-11-27] MEDS ORDERED: Kristalose20 GM PO (21:57)
== END 2018-11-27 22:53 | disposition home or self-care (01) ==
LOC: ER 17:20
PROVIDERS: Physician Assistant
DX: M54.5 Low back pain (principal); G89.29 Other chronic pain; K59.00 Constipation, unspecified; K21.9 Gastro-esophageal reflux disease without esophagitis; F41.9 Anxiety disorder, unspecified; Z91.040 Latex allergy status; Z88.8 Allergy status to other drugs, medicaments and biological substances; Z79.899 Other long term (current) drug therapy
CPT/HCPCS: 36415; 72070; 72100; 74018; 80053; 83690; 85025; 99283-25; J2405

== ENCOUNTER 2018-12-26 23:59 | Emergency (ER) | payer OTHER ==
[~2018-12-26] VITALS: Ht 154.9 cm; Wt 79.4 kg
[2018-12-27 00:30] LABS: BASOPHILS ABSOLUTE AUTO 0.04 K/mm3 (0.00-0.23); BASOPHILS PERCENT AUTO 1 % (0-2); EOSINOPHILS ABSOLUTE AUTO 0.18 K/mm3 (0.00-0.68); EOSINOPHILS PERCENT AUTO 3 % (0-6); Hematocrit 41.1 % (37.0-53.0); Hemoglobin 13.1 g/dL (13.5-17.5); IMMATURE GRAN ABSOLUTE AUTO 0.02 K/mm3 (0.00-0.10); IMMATURE GRAN PERCENT AUTO 0 % (0-1); LYMPHOCYTES ABSOLUTE AUTO 1.72 K/mm3 (0.84-5.20); LYMPHOCYTES PERCENT AUTO 30 % (21-46); MONOCYTES PERCENT AUTO 9 % (4-13); Mean Corpuscular HGB 28.4 pg (26.0-34.0); Mean Corpuscular HGB Conc 31.9 g/dL (31.5-36.5); Mean Corpuscular Volume 89 fL (80-100); Mean Platelet Volume 11.1 fL (9.1-12.4); NEUTROPHILS ABSOLUTE AUTO 3.37 K/mm3 (1.96-9.15); NEUTROPHILS PERCENT AUTO 58 % (41-73); Platelet Count 266 K/mm3 (150-400); RDW Coefficient Variation 13.8 % (11.7-14.2); RDW Standard Deviation 44.9 fL (35.1-46.3); Red Blood Cell Count 4.61 M/mm3 (4.30-5.90); White Blood Cell Count 5.83 K/mm3 (4.00-11.30)
[2018-12-27 00:43] LABS: Alanine Aminotransfer (ALT/SGP 29 U/L (12-78); Albumin, Blood 3.4 g/dL (3.4-5.0); Albumin/Globulin Ratio 1.1 (0.8-1.8); Alk Phos 50 U/L (50-136); Anion Gap 6 mmol/L (6-16); Aspartate Aminotrans (AST/SGOT 16 U/L (12-37); Bilirubin, Total 0.2 mg/dL (0.1-1.0); Blood Urea Nitrogen 12 mg/dL (8-24); Bun/Creatinine Ratio 20.6 (12.0-20.0); CO2, Blood 26 mmol/L (21-32); Calcium, Blood 8.5 mg/dL (8.5-10.1); Chloride, Blood 112 mmol/L (98-108); Creatinine, Blood 0.58 mg/dL (0.60-1.20); Glomerular Filtration Rate >60 (60-); Glucose, Blood 110 mg/dL (70-99); Potassium, Blood 3.9 mmol/L (3.5-5.5); Sodium, Blood 144 mmol/L (136-145); Total Protein, Blood 6.4 g/dL (6.4-8.2)
[2018-12-27] MEDS ORDERED: Colace100 MG PO (20:49)
== END 2018-12-27 02:57 | disposition home or self-care (01) ==
LOC: ER 23:59
PROVIDERS: Emergency Medicine
DX: K42.9 Umbilical hernia without obstruction or gangrene (principal); K21.9 Gastro-esophageal reflux disease without esophagitis; F41.9 Anxiety disorder, unspecified; F32.9 Major depressive disorder, single episode, unspecified; J45.909 Unspecified asthma, uncomplicated; G47.33 Obstructive sleep apnea (adult) (pediatric); Z88.8 Allergy status to other drugs, medicaments and biological substances; Z91.040 Latex allergy status; Z79.899 Other long term (current) drug therapy; Z79.51 Long term (current) use of inhaled steroids
CPT/HCPCS: 74019; 80053; 83690; 85025; 96374; 96375; 99284; J2270; J2765

== ENCOUNTER → 2018-12-26 | Outpatient (CLI) | payer OTHER ==
[~2018-12-26] MED LIST changes: +Kristalose20 GM PO; +Pedi-Dri 100,0060 GM TOP
== END | disposition home or self-care (01) ==
LOC: LAB SHORT 09:53 → LAB EV 09:53
DX: N39.0 Urinary tract infection, site not specified (principal)
CPT/HCPCS: 87086

== ENCOUNTER 2019-01-13 20:39 | Emergency (ER) | payer OTHER ==
[~2019-01-13] VITALS: Ht 154.9 cm; Wt 79.4 kg
[2019-01-13] MEDS ORDERED: ERYT1OIN LEFTEYE ×2 (20:57→21:48)
== END 2019-01-13 21:45 | disposition home or self-care (01) ==
LOC: ER 20:39
DX: H00.015 Hordeolum externum left lower eyelid (principal); F32.9 Major depressive disorder, single episode, unspecified; F41.9 Anxiety disorder, unspecified; J45.909 Unspecified asthma, uncomplicated; G47.33 Obstructive sleep apnea (adult) (pediatric); Z99.89 Dependence on other enabling machines and devices; Z88.8 Allergy status to other drugs, medicaments and biological substances; Z91.040 Latex allergy status; Z79.899 Other long term (current) drug therapy; Z79.51 Long term (current) use of inhaled steroids
CPT/HCPCS: 99283

== ENCOUNTER 2019-01-20 23:03 | Emergency (ER) | payer OTHER ==
[~2019-01-20] VITALS: Ht 154.9 cm; Wt 79.4 kg
[~2019-01-20 23:03] MED LIST changes: +ERYT1OIN LEFTEYE
== END 2019-01-21 01:13 | disposition home or self-care (01) ==
LOC: ER 23:03
DX: F41.0 Panic disorder [episodic paroxysmal anxiety] (principal); F22 Delusional disorders; Z88.8 Allergy status to other drugs, medicaments and biological substances; Z91.040 Latex allergy status; Z79.899 Other long term (current) drug therapy; Z87.891 Personal history of nicotine dependence
CPT/HCPCS: 99283

== ENCOUNTER 2019-01-24 00:45 | Emergency (ER) | payer OTHER ==
[~2019-01-24] VITALS: Ht 147.3 cm; Wt 79.4 kg
== END 2019-01-24 04:35 | disposition home or self-care (01) ==
LOC: ER 00:45
DX: F32.9 Major depressive disorder, single episode, unspecified (principal); Z88.8 Allergy status to other drugs, medicaments and biological substances; Z91.040 Latex allergy status; Z79.899 Other long term (current) drug therapy; J45.909 Unspecified asthma, uncomplicated; G47.30 Sleep apnea, unspecified; Z87.891 Personal history of nicotine dependence
CPT/HCPCS: 99284

== ENCOUNTER 2019-02-11 02:38 | Emergency (ER) | payer OTHER ==
[~2019-02-11] VITALS: Ht 121.9 cm; Wt 59.0 kg
[2019-02-11] MEDS ORDERED: IBUP600 PO (03:47)
[2019-02-11] MEDS ORDERED: HYDHCL25 PO (03:47)
[2019-02-11 05:25] LABS: Calcium, Ionized (POC) 1.22 mmol/L (1.10-1.46); Chloride (POC) 107 mmol/L (98-108); Creatinine (POC) 0.5 mg/dL (0.8-1.3); Glucose (ISTAT POC) 111 mg/dL (70-99); Hemoglobin (POC) 13.6 g/dL (13.5-17.5); Sodium (POC) 143 mmol/L (135-148); Total CO2 (POC) 26 mmol/L (21-32)
[2019-02-11] MEDS ORDERED: Zofran4 MG PO (05:30)
== END 2019-02-11 06:25 | disposition home or self-care (01) ==
LOC: ER 02:38
PROVIDERS: Emergency Medicine
DX: R11.2 Nausea with vomiting, unspecified (principal); M41.9 Scoliosis, unspecified; F41.9 Anxiety disorder, unspecified; F32.9 Major depressive disorder, single episode, unspecified; K21.9 Gastro-esophageal reflux disease without esophagitis; J45.909 Unspecified asthma, uncomplicated; Z91.040 Latex allergy status; Z88.8 Allergy status to other drugs, medicaments and biological substances; Z79.899 Other long term (current) drug therapy
CPT/HCPCS: 80047; 85014; 99283

== ENCOUNTER 2019-04-01 22:10 | Emergency (ER) | payer OTHER ==
[~2019-04-01] VITALS: Ht 154.9 cm; Wt 65.8 kg
[~2019-04-01 22:10] MED LIST changes: +IBUP600 PO; +Zofran4 MG PO
== END 2019-04-01 23:45 | disposition home or self-care (01) ==
LOC: ER 22:10
DX: F32.9 Major depressive disorder, single episode, unspecified (principal); J45.909 Unspecified asthma, uncomplicated; F41.9 Anxiety disorder, unspecified; E23.0 Hypopituitarism; G47.30 Sleep apnea, unspecified; K21.9 Gastro-esophageal reflux disease without esophagitis; Z87.891 Personal history of nicotine dependence; Z91.040 Latex allergy status; Z88.8 Allergy status to other drugs, medicaments and biological substances
CPT/HCPCS: 99284

== ENCOUNTER 2019-05-04 19:39 | Inpatient (IN) | payer OTHER ==
[~2019-05-04] VITALS: Ht 154.9 cm; Wt 72.3 kg
[~2019-05-04 19:39] MED LIST changes: +ONDA4ODT SL
[2019-05-04 20:36] LABS: BASOPHILS ABSOLUTE AUTO 0.03 K/mm3 (0.00-0.23); BASOPHILS PERCENT AUTO 0 % (0-2); EOSINOPHILS ABSOLUTE AUTO 0.13 K/mm3 (0.00-0.68); EOSINOPHILS PERCENT AUTO 1 % (0-6); Hematocrit 43.4 % (37.0-53.0); Hemoglobin 14.1 g/dL (13.5-17.5); IMMATURE GRAN ABSOLUTE AUTO 0.03 K/mm3 (0.00-0.10); IMMATURE GRAN PERCENT AUTO 0 % (0-1); LYMPHOCYTES PERCENT AUTO 19 % (21-46); MONOCYTES ABSOLUTE AUTO 1.01 K/mm3 (0.16-1.47); MONOCYTES PERCENT AUTO 11 % (4-13); Mean Corpuscular HGB 28.3 pg (26.0-34.0); Mean Corpuscular HGB Conc 32.5 g/dL (31.5-36.5); Mean Corpuscular Volume 87 fL (80-100); NEUTROPHILS ABSOLUTE AUTO 6.51 K/mm3 (1.96-9.15); NEUTROPHILS PERCENT AUTO 69 % (41-73); Platelet Count 275 K/mm3 (150-400); RDW Coefficient Variation 14.8 % (11.7-14.2); RDW Standard Deviation 47.8 fL (35.1-46.3); Red Blood Cell Count 4.98 M/mm3 (4.30-5.90); White Blood Cell Count 9.51 K/mm3 (4.00-11.30)
[2019-05-04 20:56] LABS: Alanine Aminotransfer (ALT/SGP 117 U/L (12-78); Albumin, Blood 3.7 g/dL (3.4-5.0); Albumin/Globulin Ratio 1.2 (0.8-1.8); Alk Phos 83 U/L (50-136); Anion Gap 7 mmol/L (6-16); Aspartate Aminotrans (AST/SGOT 201 U/L (12-37); Bilirubin, Total 0.4 mg/dL (0.1-1.0); Blood Urea Nitrogen 16 mg/dL (8-24); Bun/Creatinine Ratio 29.3 (12.0-20.0); CO2, Blood 27 mmol/L (21-32); Chloride, Blood 110 mmol/L (98-108); Creatinine, Blood 0.55 mg/dL (0.60-1.20); Globulin, Blood 3.2 g/dL (2.2-4.0); Glomerular Filtration Rate >60 (60-); Glucose, Blood 111 mg/dL (70-99); Potassium, Blood 3.5 mmol/L (3.5-5.5); Sodium, Blood 144 mmol/L (136-145); Total Protein, Blood 6.9 g/dL (6.4-8.2)
[2019-05-04 22:10] LABS: Source, Urine Clean Catch
[2019-05-04 22:15] LABS: Bilirubin, Urine Neg (Neg); Blood, Urine Neg (Neg); Glucose Qualitative, Urine Neg (Neg); Ketones, Urine Neg (Neg); Leukocyte Esterase, Urine Neg (Neg); Nitrite, Urine Neg (Neg); Protein, Urine Neg (Neg); Urobilinogen, Urine 1+ (Normal)
[2019-05-04 22:19] LABS: Appearance, Urine Clear (Clear); Color, Urine Yellow (P-Yellow)
[2019-05-05 05:20] LABS: Hematocrit 40.3 % (37.0-53.0); Hemoglobin 12.9 g/dL (13.5-17.5); Mean Corpuscular HGB 28.2 pg (26.0-34.0); Mean Corpuscular Volume 88 fL (80-100); Mean Platelet Volume 11.1 fL (9.1-12.4); Platelet Count 240 K/mm3 (150-400); RDW Coefficient Variation 14.7 % (11.7-14.2); RDW Standard Deviation 47.8 fL (35.1-46.3); Red Blood Cell Count 4.58 M/mm3 (4.30-5.90); White Blood Cell Count 5.82 K/mm3 (4.00-11.30)
[2019-05-05 05:45] LABS: Alanine Aminotransfer (ALT/SGP 122 U/L (12-78); Albumin, Blood 3.1 g/dL (3.4-5.0); Albumin/Globulin Ratio 1.1 (0.8-1.8); Alk Phos 74 U/L (50-136); Anion Gap 6 mmol/L (6-16); Aspartate Aminotrans (AST/SGOT 72 U/L (12-37); Bilirubin, Total 0.4 mg/dL (0.1-1.0); Blood Urea Nitrogen 13 mg/dL (8-24); Bun/Creatinine Ratio 28.7 (12.0-20.0); CO2, Blood 26 mmol/L (21-32); Calcium, Blood 8.4 mg/dL (8.5-10.1); Chloride, Blood 113 mmol/L (98-108); Creatinine, Blood 0.45 mg/dL (0.60-1.20); Globulin, Blood 2.7 g/dL (2.2-4.0); Glomerular Filtration Rate >60 (60-); Glucose, Blood 95 mg/dL (70-99); Potassium, Blood 3.2 mmol/L (3.5-5.5); Sodium, Blood 145 mmol/L (136-145); Total Protein, Blood 5.8 g/dL (6.4-8.2)
[2019-05-05 05:53] LABS: CHOL/HDL RATIO 2.9; Cholesterol 100 mg/dL (50-200); HDL Cholesterol 34 mg/dL (>39); LDL/HDL RATIO 1.3; Low Density Lipoprotein Chol 45 mg/dL (0-110); Triglycerides 106 mg/dL (30-140); Very Low Density Lipoprot Chol 21 mg/dL (6-28)
--- NOTE | 2019-05-05 07:25 | NUR ---
ASSUSMED CARE OF PT- BEDSIDE REPORT COMPLETED WITH NIGHT ELIGHTON ZABALA. PER REPORT PT PAIN WAS WELL MANAGED T/O THE NIGHT NO PAIN MANAGEMENT NEEDED. PT IS VERY GROGGY THIS MORNING. WAKES TO STAFF VOICES BUT DRIFTS OFF TO SLEEP VERY SHORTLY. PT HAS NO S&S OF DISTRESS AT THIS TIME.
--- NOTE | 2019-05-05 13:06 | NUR ---
Patient is lying in bed and asleep. Patient barely opens his eyes to the sound of his name. Patient makes short statements but does not engage in conversation. I finally ask patient if I could pray for him and he affirms "yes." I gladly provide prayer. Patient falls asleep during my very brief prayer. I will continue to remain available to patient and family.
--- NOTE | 2019-05-05 13:31 | NUR ---
PT TRANSFERRED TO [facility] FROM [facility]. History, Chart, Medications and Allergies reviewed before start of procedure. Lungs clear T/O to Auscultation. Patient confirms NPO status and agrees with scheduled surgery.
[2019-05-05 13:57] LABS: Source, Urine Clean Catch
[2019-05-05 14:01] LABS: Bilirubin, Urine Neg (Neg); Blood, Urine Neg (Neg); Glucose Qualitative, Urine Neg (Neg); Ketones, Urine Neg (Neg); Leukocyte Esterase, Urine Neg (Neg); Nitrite, Urine Neg (Neg); Protein, Urine Neg (Neg); Specific Gravity, Urine 1.005 (1.003-1.022); Urobilinogen, Urine NORM (Normal)
--- NOTE | 2019-05-05 14:09 | NUR ---
05/05/19 1409 Brendon Nair Bite Block PlacedPatient to ENDO 1History, Chart, Medications and Allergies reviewed before start of procedure.MONITOR INTACT WITH CONTINUOUS PULSE OXIMETRY AND INTERMITTENT BP.O2 VIA N/C INTACT THROUGHOUT SEDATION/PROCEDURE.See Anesthesia record
[2019-05-05 14:12] LABS: Appearance, Urine Clear (Clear); Color, Urine Pale Yellow (P-Yellow)
[2019-05-05] MEDS ORDERED: CHILDREN'S160 MG/59 PO (15:38)
[2019-05-05] MEDS ORDERED: Banophen25 MG PO (15:41)
[2019-05-05] MEDS ORDERED: BISA10S PR (15:42)
[2019-05-05] MEDS ORDERED: DOCU100 PO (15:43)
[2019-05-05] MEDS ORDERED: ERYT.5TO LEFTEYE (15:43)
[2019-05-05] MEDS ORDERED: Florastor250 MG PO (15:44)
[2019-05-05] MEDS ORDERED: HYDHCL25 PO (15:46)
[2019-05-05] MEDS ORDERED: IBUP600 PO (15:47)
[2019-05-05] MEDS ORDERED: GAVILAX17 GM PO (15:48)
[2019-05-05] MEDS ORDERED: [UNRECOGNIZED DRUG - OTHER] (15:54)
--- NOTE | 2019-05-05 18:19 | NUR ---
CALLED DR BRITTON. PT HAD A VEWS SCORE OF 4 HR HAS BEEN CHAIM T/O THE SHIFT POST PROCEDURE HR WAS 51 HOWEVER ON A REPEAT OF THE VITALS PT HR WAS 40. PT AWAKE AND TALKING TO STAFF ASYMPTOMATIC LOOKING IN THE Hx THIS HAS HAPPENED IN THE PT PAST VISITS. RECIEVED ORDER FOR CONTINUIOUS IVF AT 100ML/HR FOR THE LOW PRESSURES AND TELEMETRY FOR THE BRADYCARDIA. WILL CTM AND PASS ON TO NIGHT RN IN REPORT.
--- NOTE | 2019-05-05 19:22 | NUR ---
SHIFT SUMMARY- PT PLACED ON TELE RUNNING NS AT 78 AT THE TIME TELE WAS PLACED. PT ALERT AND LAUGHING WITH STAFF JUST PRIOR TO PLACEMENT. IVF RUNNING AT 100ML/HR SBP ON RECHECK WAS 113 UP FROM 99. PT HAS NO C/O PAIN ATE A LARGE PORTION OF HIS DINNER. PT DENIES PAIN OR NAUSEA AFTER EATING. POSSIBLE DISCHARGE TOMORROW IF PT CONTINUES TO TOLLERTATE FOOD (PER ).
--- NOTE | 2019-05-06 06:07 | NUR ---
SHIFT SUMMARY PATIENT ALERT AND ORIENTED. WAS ENJOYING TALKING WITH HIS FRIENDS ON THE PHONE AND WAS ABLE TO GET A GOOD NIGHT'S SLEEP. IV PATENT AND FLUSHED. TELE IN PLACE AND SHOWS PATIENT TO BE BRADYCARDIC. BED IN LOWEST POSITION WITH WHEELS LOCKED. CALL LIGHT WITHIN REACH. REPORT GIVEN TO ONCOMING RN.
--- NOTE | 2019-05-06 09:30 | NUR ---
CALLED DR MARIA- PT HR BRADICARDIC T/O THE NIGHT WITH A LOW OF 35 PT HR 49 ON TELE THIS MORNING. PT CALM AND RELAXED AND VERY SLEEPY. CALLED DR MARIA ABOUT LARGE DOSE OF BUSBAR PT HAS SCHEDULED THIS MORNING, HR HAS BEEN 40-50 ON VITALS. ORDER RECIEVED TO HOLD THIS MORNINGS DOSE OF BUSBAR.
[2019-05-06 09:54] LABS: Albumin, Blood 3.5 g/dL (3.4-5.0); Albumin/Globulin Ratio 1.1 (0.8-1.8); Bilirubin, Direct 0.1 mg/dL (0.0-0.3); Bilirubin, Indirect 0.4 mg/dL (0.1-0.7); Bilirubin, Total 0.5 mg/dL (0.1-1.0); Globulin, Blood 3.1 g/dL (2.2-4.0); Total Protein, Blood 6.6 g/dL (6.4-8.2)
--- NOTE | 2019-05-06 12:50 | NUR ---
Called in to provide family life counselor and prayer to [place]. He tells me he is seeing visions of "the End Times." We explored his lynn and beleifs, and I provided gentle spiritual family life counselor. We prayed together at conclusion of visit. I will remain available.
--- NOTE | 2019-05-06 17:27 | NUR ---
LATE ENTRY----- CALLED SARMAD ABOUT PT DISCHARGE (SARMAD IS THE PERSON WHO RUNS THE [facility] THE PT RESIDES IN). FAXED MEDICATION LIST TH PT CARE FACILITY PER REQUEST. PT CALLED AND SPOKE TO FACILITY AND BECAME AGGITATED STATING THAT HE DOESN'T FEEL SAFE TO DISCHARGE BACK TO HIS FACILITY BECAUSE SARMAD IS IN [place] (PER PT). PT GRANDMOTHER CALLED AND STATED SHE WANTS THE PT TO DISCHARGE TO HER RESIDENCE IN [place] AND HE CAN STAY THROUGH THE [place]. SPOKE TO DISCHARGE PLANNING AND THE PT CAN DECIDE WHERE HE WANTS TO DISCHARGE TO. SPOKE TO POLITICAL SCIENCE RESEARCH ASSISTANT ABOUT DESTINATION CHANGE FOR PT TRANSPORT. TRANSPORT ALREADY SET FOR 1600. TRANSPORT ARRIVED 1650 AND PT WAS ANGRY SAYING THAT THE FACILITY WOULD NOT LET HIM DISCHARGE TO HIS GRANDMOTHERS HOME HE HAD PLANNED. PT WAS TAKEN VIA GURNEY TRANSPORT BACK TO HIS [facility]. PT STATED THIS IS WHERE HE HAS TO GO AND CONSENTED TO TRANSPORT. PT IV AND TELE DC'D PRIOR TO DISCHARGE. NO FURTHER QUESTIONS AT THE TIME OF DISCHARGE.
[2019-05-07 04:06] LABS: HBSAG SCREEN Negative (Negative); HEP A AB, IGM Negative (Negative); HEP B CORE AB, IGM Negative (Negative); HEP C VIRUS AB <0.1 (0.0-0.9)
== END 2019-05-06 17:03 | disposition home or self-care (01) | DRG 391 ==
LOC: ER 19:39 → MEDS 05-05 01:23
PROVIDERS: Physician Assistant; Student in an Organized Health Care Education/Training Program; ADMIT Internal Medicine
PROC: 0DB78ZX Excision of Stomach, Pylorus, Via Natural or Artificial Opening Endoscopic, Diagnostic (ICD-10-PCS; 2019-05-05)
PROC: 0DB68ZX Excision of Stomach, Via Natural or Artificial Opening Endoscopic, Diagnostic (ICD-10-PCS; 2019-05-05)
PROC: 0DB98ZX Excision of Duodenum, Via Natural or Artificial Opening Endoscopic, Diagnostic (ICD-10-PCS; principal; 2019-05-05 13:00)
DX: K29.40 Chronic atrophic gastritis without bleeding (principal); G80.0 Spastic quadriplegic cerebral palsy; R74.8 Abnormal levels of other serum enzymes; M41.9 Scoliosis, unspecified; J45.909 Unspecified asthma, uncomplicated; K21.9 Gastro-esophageal reflux disease without esophagitis; G47.33 Obstructive sleep apnea (adult) (pediatric); F41.1 Generalized anxiety disorder; G89.4 Chronic pain syndrome; G31.84 Mild cognitive impairment of uncertain or unknown etiology; Z87.891 Personal history of nicotine dependence; Z88.8 Allergy status to other drugs, medicaments and biological substances; Z91.040 Latex allergy status; Z79.1 Long term (current) use of non-steroidal anti-inflammatories (NSAID); Z79.899 Other long term (current) drug therapy
CPT/HCPCS: 36415; 74177; 76700; 80053; 80061; 80074; 80076; 81003; 83690; 85025; 85027; 88305; 88342; 93005; 93010; 96361; 96374-59; 96375; 99285-25; A9270-GY; C9113; J2405; J2704; J3010; J3480; J7030; J7120; Q9967

== ENCOUNTER 2019-07-28 16:57 | Emergency (ER) | payer OTHER ==
[~2019-07-28] VITALS: Ht 154.9 cm; Wt 79.4 kg
[~2019-07-28 16:57] MED LIST changes: +BISA10S PR; +Banophen25 MG PO; +CHILDREN'S160 MG/59 PO; +DOCU100 PO; +ERYT.5TO LEFTEYE; +Florastor250 MG PO; +[UNRECOGNIZED DRUG - OTHER]
== END 2019-07-28 20:43 | disposition home or self-care (01) ==
LOC: ER 16:57
DX: R20.2 Paresthesia of skin (principal); Z91.040 Latex allergy status; Z88.8 Allergy status to other drugs, medicaments and biological substances; Z79.899 Other long term (current) drug therapy; J45.909 Unspecified asthma, uncomplicated; F41.9 Anxiety disorder, unspecified; G47.33 Obstructive sleep apnea (adult) (pediatric); F32.9 Major depressive disorder, single episode, unspecified; F17.200 Nicotine dependence, unspecified, uncomplicated
CPT/HCPCS: 99284

== ENCOUNTER 2020-09-06 17:22 | Emergency (ER) | payer OTHER ==
[~2020-09-06] VITALS: Ht 152.4 cm; Wt 79.4 kg
[2020-09-06 18:44] LABS: BASOPHILS ABSOLUTE AUTO 0.08 K/mm3 (0.00-0.23); BASOPHILS PERCENT AUTO 1 % (0-2); EOSINOPHILS PERCENT AUTO 2 % (0-6); Hematocrit 45.6 % (37.0-53.0); Hemoglobin 15.8 g/dL (13.5-17.5); IMMATURE GRAN ABSOLUTE AUTO 0.02 K/mm3 (0.00-0.10); IMMATURE GRAN PERCENT AUTO 0 % (0-1); LYMPHOCYTES ABSOLUTE AUTO 2.42 K/mm3 (0.84-5.20); LYMPHOCYTES PERCENT AUTO 28 % (21-46); MONOCYTES ABSOLUTE AUTO 0.77 K/mm3 (0.16-1.47); MONOCYTES PERCENT AUTO 9 % (4-13); Mean Corpuscular HGB 30.9 pg (26.0-34.0); Mean Corpuscular HGB Conc 34.6 g/dL (31.5-36.5); Mean Corpuscular Volume 89 fL (80-100); Mean Platelet Volume 10.9 fL (9.1-12.4); NEUTROPHILS ABSOLUTE AUTO 5.24 K/mm3 (1.96-9.15); NEUTROPHILS PERCENT AUTO 60 % (41-73); Platelet Count 307 K/mm3 (150-400); RDW Coefficient Variation 12.3 % (11.7-14.2); RDW Standard Deviation 40.7 fL (35.1-46.3); Red Blood Cell Count 5.12 M/mm3 (4.30-5.90); White Blood Cell Count 8.73 K/mm3 (4.00-11.30)
[2020-09-06 20:06] LABS: Alanine Aminotransfer (ALT/SGP 178 U/L (12-78); Albumin, Blood 3.6 g/dL (3.4-5.0); Albumin/Globulin Ratio 1.2 (0.8-1.8); Alk Phos 55 U/L (50-136); Anion Gap 5 mmol/L (6-16); Aspartate Aminotrans (AST/SGOT 75 U/L (12-37); Bilirubin, Total 0.6 mg/dL (0.1-1.0); Blood Urea Nitrogen 13 mg/dL (8-24); Bun/Creatinine Ratio 29.5 (12.0-20.0); CO2, Blood 26 mmol/L (21-32); Calcium, Blood 8.5 mg/dL (8.5-10.1); Chloride, Blood 107 mmol/L (98-108); Creatinine, Blood 0.44 mg/dL (0.60-1.20); Globulin, Blood 2.9 g/dL (2.2-4.0); Glomerular Filtration Rate >60 (60-); Glucose, Blood 82 mg/dL (70-99); Potassium, Blood 3.8 mmol/L (3.5-5.5); Sodium, Blood 138 mmol/L (136-145); Total Protein, Blood 6.5 g/dL (6.4-8.2)
== END 2020-09-06 23:35 | disposition home or self-care (01) ==
LOC: ER 17:22
PROVIDERS: Student in an Organized Health Care Education/Training Program
DX: R10.9 Unspecified abdominal pain (principal); F17.200 Nicotine dependence, unspecified, uncomplicated; Z91.040 Latex allergy status
CPT/HCPCS: 36415; 74177; 80053; 83605; 83690; 85025; 96374; 96375; 99285-25; A9270; J1885; J2270; J7120; Q9967

== ENCOUNTER 2020-09-19 23:44 | Emergency (ER) | payer OTHER ==
[~2020-09-19] VITALS: Ht 154.9 cm; Wt 83.9 kg
[2020-09-20] MEDS ORDERED: MULTIPLE VITAM1 EACH PO (00:26)
[2020-09-20] MEDS ORDERED: Acerola C500 MG PO (00:27)
[2020-09-20] MEDS ORDERED: THERA-D2000 UNIT PO (00:27)
[2020-09-20] MEDS ORDERED: MAGNESIUM OXID500 MG PO (00:28)
[2020-09-20] MEDS ORDERED: DIPATR PO (00:29)
[2020-09-20 01:16] LABS: Source, Urine Catheter
[2020-09-20 01:19] LABS: Bilirubin, Urine Neg (Neg); Blood, Urine 1+ (Neg); Glucose Qualitative, Urine Neg (Neg); Ketones, Urine Neg (Neg); Leukocyte Esterase, Urine Neg (Neg); Nitrite, Urine Neg (Neg); Protein, Urine 1+ (Neg); Urobilinogen, Urine NORM (Normal)
[2020-09-20 01:20] LABS: Appearance, Urine Clear (Clear); Color, Urine Yellow (P-Yellow)
[2020-09-20 01:27] LABS: Amorphous Light (0-Heavy); Bacteria Rare /hpf; Mucus Light (0-Heavy); Squamous Epithelial Cells Not Seen /hpf (Few); White Blood Cells, Urine Not Seen /hpf (0-5)
== END 2020-09-20 02:55 | disposition home or self-care (01) ==
LOC: ER 23:44
PROVIDERS: Student in an Organized Health Care Education/Training Program
DX: U07.1 COVID-19 (principal); F17.200 Nicotine dependence, unspecified, uncomplicated; J45.909 Unspecified asthma, uncomplicated; Z88.8 Allergy status to other drugs, medicaments and biological substances; Z91.040 Latex allergy status
CPT/HCPCS: 81001; 99285; A9270

== ENCOUNTER 2021-10-13 01:12 | Day surgery (SDC) | payer OTHER ==
[~2021-10-13 01:12] MED LIST changes: +Acerola C500 MG PO; +DIPATR PO; +MAGNESIUM OXID500 MG PO; +MULTIPLE VITAM1 EACH PO; +THERA-D2000 UNIT PO
== END 2021-10-13 22:46 | disposition home or self-care (01) ==
LOC: WOUND 01:12
DX: L97.512 Non-pressure chronic ulcer of other part of right foot with fat layer exposed (principal); L03.031 Cellulitis of right toe
CPT/HCPCS: A9270; G0463

== ENCOUNTER 2021-10-22 06:37 | Day surgery (SDC) | payer OTHER | END 2021-10-22 23:25 | disposition home or self-care (01) | LOC: WOUND 06:37 | DX: L97.512 Non-pressure chronic ulcer of other part of right foot with fat layer exposed (principal); L03.031 Cellulitis of right toe | CPT/HCPCS: A9270; G0463 ==

== ENCOUNTER 2021-10-29 07:44 | Day surgery (SDC) | payer OTHER | END 2021-10-29 23:33 | disposition home or self-care (01) | LOC: WOUND 07:44 | DX: L03.031 Cellulitis of right toe (principal); L97.512 Non-pressure chronic ulcer of other part of right foot with fat layer exposed | CPT/HCPCS: A9270; G0463 ==

== ENCOUNTER 2021-11-19 01:48 | Day surgery (SDC) | payer OTHER ==
[2021-11-19] MEDS ORDERED: IBUP600 PO (18:28)
== END 2021-11-19 23:23 | disposition home or self-care (01) ==
LOC: WOUND 01:48
DX: L97.512 Non-pressure chronic ulcer of other part of right foot with fat layer exposed (principal); L03.031 Cellulitis of right toe
CPT/HCPCS: A9270; G0463

== ENCOUNTER 2021-11-19 08:39 | Inpatient (IN) | payer OTHER ==
[~2021-11-19] VITALS: Ht 157.5 cm; Wt 90.9 kg
[2021-11-19 09:58] LABS: BASOPHILS ABSOLUTE AUTO 0.09 K/mm3 (0.00-0.23); BASOPHILS PERCENT AUTO 1 % (0-2); EOSINOPHILS ABSOLUTE AUTO 0.32 K/mm3 (0.00-0.68); EOSINOPHILS PERCENT AUTO 3 % (0-6); Hematocrit 48.3 % (37.0-53.0); IMMATURE GRAN ABSOLUTE AUTO 0.03 K/mm3 (0.00-0.10); IMMATURE GRAN PERCENT AUTO 0 % (0-1); LYMPHOCYTES ABSOLUTE AUTO 2.95 K/mm3 (0.84-5.20); LYMPHOCYTES PERCENT AUTO 27 % (21-46); MONOCYTES ABSOLUTE AUTO 0.87 K/mm3 (0.16-1.47); MONOCYTES PERCENT AUTO 8 % (4-13); Mean Corpuscular HGB 29.6 pg (26.0-34.0); Mean Corpuscular HGB Conc 33.1 g/dL (31.5-36.5); Mean Corpuscular Volume 89 fL (80-100); Mean Platelet Volume 10.5 fL (9.1-12.4); NEUTROPHILS ABSOLUTE AUTO 6.79 K/mm3 (1.96-9.15); NEUTROPHILS PERCENT AUTO 61 % (41-73); Platelet Count 368 K/mm3 (150-400); RDW Coefficient Variation 12.4 % (11.7-14.2); RDW Standard Deviation 40.5 fL (35.1-46.3); Red Blood Cell Count 5.41 M/mm3 (4.30-5.90); White Blood Cell Count 11.05 K/mm3 (4.00-11.30)
[2021-11-19 10:14] LABS: Albumin, Blood 4.5 g/dL (3.4-5.0); Albumin/Globulin Ratio 1.2 (0.8-1.8); Bilirubin, Total 0.8 mg/dL (0.1-1.0); Bun/Creatinine Ratio 27.8 (12.0-20.0); Calcium, Blood 10.4 mg/dL (8.5-10.1); Creatinine, Blood 0.58 mg/dL (0.60-1.20); Globulin, Blood 3.8 g/dL (2.2-4.0); Total Protein, Blood 8.3 g/dL (6.4-8.2)
[2021-11-19] MEDS ORDERED: IBUP600 PO (18:28)
--- NOTE | 2021-11-20 05:13 | NUR ---
SHIFT SUMMARY ADMISSION FOR CHRONIC INFECTION OF RIGHT FOOT THAT HAS FAILED ANTIBIOTIC TREATMENTS. PT HAS BEEN AWAKE MOST OF THE NIGHT, RESTLESS. HE HAS FOUND IT DIFFICULT TO GET COMFORTABLE, AND COMPLAINS OF HOT FLASHES. TEMPERATURE IN ROOM IS COOL, AND PT BODY TEMP WNL. BEDSIDE FAN IN PLACE TO PROVIDE RELIEF AND PT PROVIDED WITH COOL WASH RAGS. PT MEDICATED FOR PAIN IN HIS RIGHT FOOT THIS SHIFT X1, IBUPROFEN PROVIDES ADEQUATE RELIEF. PT HAS HAD INCONTINENT VOIDS AND A BM THIS SHIFT. VITALS ARE STABLE. PT NPO SINCE MIDNIGHT. A/OX4, USES CALL LIGHT FREQUENTLY. NO ACUTE CHANGES OVERNIGHT. BED IN LOWEST POSITION, CALL LIGHT WITHIN REACH.
[2021-11-20 09:03] LABS: BASOPHILS ABSOLUTE AUTO 0.03 K/mm3 (0.00-0.23); BASOPHILS PERCENT AUTO 0 % (0-2); EOSINOPHILS PERCENT AUTO 4 % (0-6); Hematocrit 43.5 % (37.0-53.0); Hemoglobin 14.5 g/dL (13.5-17.5); IMMATURE GRAN ABSOLUTE AUTO 0.05 K/mm3 (0.00-0.10); IMMATURE GRAN PERCENT AUTO 0 % (0-1); LYMPHOCYTES ABSOLUTE AUTO 2.09 K/mm3 (0.84-5.20); LYMPHOCYTES PERCENT AUTO 16 % (21-46); MONOCYTES PERCENT AUTO 9 % (4-13); Mean Corpuscular HGB Conc 33.3 g/dL (31.5-36.5); Mean Corpuscular Volume 90 fL (80-100); Mean Platelet Volume 10.4 fL (9.1-12.4); NEUTROPHILS ABSOLUTE AUTO 8.89 K/mm3 (1.96-9.15); NEUTROPHILS PERCENT AUTO 70 % (41-73); Platelet Count 280 K/mm3 (150-400); RDW Coefficient Variation 12.5 % (11.7-14.2); RDW Standard Deviation 40.8 fL (35.1-46.3); Red Blood Cell Count 4.83 M/mm3 (4.30-5.90); White Blood Cell Count 12.76 K/mm3 (4.00-11.30)
[2021-11-20 09:25] LABS: Albumin, Blood 3.6 g/dL (3.4-5.0); Anion Gap 8 mmol/L (6-16); Blood Urea Nitrogen 24 mg/dL (8-24); Bun/Creatinine Ratio 23.3 (12.0-20.0); CO2, Blood 27 mmol/L (21-32); Chloride, Blood 107 mmol/L (98-108); Creatinine, Blood 1.03 mg/dL (0.60-1.20); Glomerular Filtration Rate 105 (60-); Glucose, Blood 116 mg/dL (70-99); Phosphorus, Blood 4.9 mg/dL (2.5-4.9); Potassium, Blood 3.8 mmol/L (3.5-5.5); Sodium, Blood 142 mmol/L (136-145)
[2021-11-20 09:33] LABS: Vancomycin, Trough 33.7 ug/mL (5.0-10.0)
--- NOTE | 2021-11-20 17:44 | NUR ---
SHIFT SUMMARY PT PLEASANT AND COOPERATIVE WITH CARE. GRANDMOTHER AT BEDSIDE AND HELPS WITH MOST ADL'S. PT DENIES PAIN THIS SHIFT. PT TO BE NPO AT MIDNIGHT FOR POSSIBLE AMPUTATION TOMORROW. VSS.
[2021-11-21 04:11] LABS: BASOPHILS ABSOLUTE AUTO 0.03 K/mm3 (0.00-0.23); BASOPHILS PERCENT AUTO 0 % (0-2); EOSINOPHILS ABSOLUTE AUTO 0.35 K/mm3 (0.00-0.68); EOSINOPHILS PERCENT AUTO 3 % (0-6); Hematocrit 42.8 % (37.0-53.0); Hemoglobin 14.1 g/dL (13.5-17.5); IMMATURE GRAN ABSOLUTE AUTO 0.05 K/mm3 (0.00-0.10); IMMATURE GRAN PERCENT AUTO 0 % (0-1); LYMPHOCYTES ABSOLUTE AUTO 2.05 K/mm3 (0.84-5.20); LYMPHOCYTES PERCENT AUTO 15 % (21-46); MONOCYTES ABSOLUTE AUTO 1.39 K/mm3 (0.16-1.47); MONOCYTES PERCENT AUTO 10 % (4-13); Mean Corpuscular HGB 29.9 pg (26.0-34.0); Mean Corpuscular HGB Conc 32.9 g/dL (31.5-36.5); Mean Corpuscular Volume 91 fL (80-100); Mean Platelet Volume 10.6 fL (9.1-12.4); NEUTROPHILS ABSOLUTE AUTO 9.53 K/mm3 (1.96-9.15); NEUTROPHILS PERCENT AUTO 71 % (41-73); Platelet Count 288 K/mm3 (150-400); RDW Coefficient Variation 12.5 % (11.7-14.2); Red Blood Cell Count 4.72 M/mm3 (4.30-5.90)
[2021-11-21 04:28] LABS: Vancomycin, Random 22.8 ug/mL
--- NOTE | 2021-11-21 05:16 | NUR ---
SHIFT SUMMARY PT ALERT AND COOPERATIVE WITH CARE. DID NOT NEED PAIN COVERAGE THIS SHIFT. NPO SINCE 0000. CONTINUED ORDERED ABX. PT SLEPT MAJORITY OF SHIFT. VVS. INCONTINENT, ATTENDS IN PLACE. CALLS APPROPRIATELY, CALL LIGHT WITHIN REACH.
--- NOTE | 2021-11-21 16:06 | NUR ---
SHIFT SUMMARY PT S/P R HALLUX AMPUTATION. GAUZE/CARITO WRAP DRESSING TO R FOOT, CDI. NO COMPLAINTS OF PAIN AT THIS TIME. PT DESATS WHEN SLEEPING AND 4 LITERS O2 APPLIED TO MAINTAIN O2 SATS >90%. PT TOLERATING PO INTAKE WELL. GRANDMOTHER AT THE BEDSIDE.
--- NOTE | 2021-11-22 05:22 | NUR ---
SHIFT SUMMARY PT ALERT AND COOPERATIVE WITH CARE. NO ACUTE CHANGES. VSS GAVE IBUPROFEN ONCE FOR PAIN. TOLERATING PO INTAKE. ATTENDS IN PLACE, THOUGH ABLE TO USE THE BEDSIDE URINAL WITH HELP. REILLY/CARITO WRAP ON R FOOT C/D/I. CALLS APPROPRIATELY, CALL LIGHT WITHIN REACH.
[2021-11-22 07:18] LABS: BASOPHILS ABSOLUTE AUTO 0.02 K/mm3 (0.00-0.23); BASOPHILS PERCENT AUTO 0 % (0-2); EOSINOPHILS ABSOLUTE AUTO 0.31 K/mm3 (0.00-0.68); EOSINOPHILS PERCENT AUTO 3 % (0-6); Hematocrit 38.8 % (37.0-53.0); IMMATURE GRAN ABSOLUTE AUTO 0.04 K/mm3 (0.00-0.10); IMMATURE GRAN PERCENT AUTO 0 % (0-1); LYMPHOCYTES ABSOLUTE AUTO 1.72 K/mm3 (0.84-5.20); LYMPHOCYTES PERCENT AUTO 16 % (21-46); MONOCYTES ABSOLUTE AUTO 1.17 K/mm3 (0.16-1.47); MONOCYTES PERCENT AUTO 11 % (4-13); Mean Corpuscular HGB 30.4 pg (26.0-34.0); Mean Corpuscular HGB Conc 33.5 g/dL (31.5-36.5); Mean Corpuscular Volume 91 fL (80-100); Mean Platelet Volume 10.7 fL (9.1-12.4); NEUTROPHILS ABSOLUTE AUTO 7.65 K/mm3 (1.96-9.15); NEUTROPHILS PERCENT AUTO 70 % (41-73); Platelet Count 233 K/mm3 (150-400); RDW Coefficient Variation 12.3 % (11.7-14.2); RDW Standard Deviation 40.8 fL (35.1-46.3); Red Blood Cell Count 4.28 M/mm3 (4.30-5.90); White Blood Cell Count 10.91 K/mm3 (4.00-11.30)
[2021-11-22 16:37] LABS: Albumin, Blood 3.2 g/dL (3.4-5.0); Anion Gap 7 mmol/L (6-16); Blood Urea Nitrogen 57 mg/dL (8-24); Bun/Creatinine Ratio 14.5 (12.0-20.0); CO2, Blood 27 mmol/L (21-32); Calcium, Blood 9.5 mg/dL (8.5-10.1); Chloride, Blood 107 mmol/L (98-108); Creatinine, Blood 3.92 mg/dL (0.60-1.20); Glomerular Filtration Rate 21 (60-); Glucose, Blood 114 mg/dL (70-99); Phosphorus, Blood 5.8 mg/dL (2.5-4.9); Potassium, Blood 4.4 mmol/L (3.5-5.5); Sodium, Blood 141 mmol/L (136-145)
--- NOTE | 2021-11-22 18:08 | NUR ---
SHIFT SUMMARY POD 1 R HALLUX AMPUTATION DRESSING REMAINS CDI. PT HAS CEREBRAL PALSY AND GRANDMA IS PRIMARY CAREGIVER. SHE HAS BEEN IN ROOM T/O SHIFT. MEDICATED FOR PAIN X 1 PER EMAR. HE HAS REPORTED PAIN TOLERABLE SINCE. IV ABX INFUSING PER ORDERS.
--- NOTE | 2021-11-23 03:33 | NUR ---
SHIFT SUMMARY NO ACUTE CHANGES OVERNIGHT. POD 2 R HALLUX AMP. DRESSING REMAINED CDI. BEDREST/ BEDBOUND ON BASELINE. MINIMAL MOV'T ON BLE (WHICH IS HIS BASELINE WELL) PT IS A LIFT PT AT HOME PER GRANDMA (CAREGIVER). 3L ON NC AT NIGHT HX [place]. VSS. PT REPORTS PAIN 10/10 ONCE TONIGHT AND MEDICATED WITH 50MCG FENTANYL WITH RELIEF. REPOSITIONED. BLE ELEVATED. IV ON R HAND, IV ABX ADMINISTERED. IV FLUIDS INFUSING AT 75MLS/HR. CALL LIGHT WITHIN REACH. WILL CONTINUE TO MONITOR AND WILL PROVIDE REPORT TO ONCOMING NURSE.
[2021-11-23 05:49] LABS: BASOPHILS ABSOLUTE AUTO 0.03 K/mm3 (0.00-0.23); BASOPHILS PERCENT AUTO 0 % (0-2); EOSINOPHILS PERCENT AUTO 5 % (0-6); Hemoglobin 13.2 g/dL (13.5-17.5); IMMATURE GRAN ABSOLUTE AUTO 0.03 K/mm3 (0.00-0.10); IMMATURE GRAN PERCENT AUTO 0 % (0-1); LYMPHOCYTES ABSOLUTE AUTO 1.72 K/mm3 (0.84-5.20); LYMPHOCYTES PERCENT AUTO 16 % (21-46); MONOCYTES ABSOLUTE AUTO 1.34 K/mm3 (0.16-1.47); MONOCYTES PERCENT AUTO 12 % (4-13); Mean Corpuscular HGB 29.8 pg (26.0-34.0); Mean Corpuscular Volume 90 fL (80-100); Mean Platelet Volume 10.6 fL (9.1-12.4); NEUTROPHILS ABSOLUTE AUTO 7.44 K/mm3 (1.96-9.15); NEUTROPHILS PERCENT AUTO 67 % (41-73); Platelet Count 249 K/mm3 (150-400); RDW Standard Deviation 39.7 fL (35.1-46.3); Red Blood Cell Count 4.43 M/mm3 (4.30-5.90); White Blood Cell Count 11.06 K/mm3 (4.00-11.30)
[2021-11-23 06:11] LABS: Albumin, Blood 3.1 g/dL (3.4-5.0); Anion Gap 7 mmol/L (6-16); Blood Urea Nitrogen 54 mg/dL (8-24); Bun/Creatinine Ratio 16.6 (12.0-20.0); CO2, Blood 27 mmol/L (21-32); Calcium, Blood 9.3 mg/dL (8.5-10.1); Chloride, Blood 107 mmol/L (98-108); Creatinine, Blood 3.26 mg/dL (0.60-1.20); Glomerular Filtration Rate 26 (60-); Glucose, Blood 125 mg/dL (70-99); Phosphorus, Blood 5.6 mg/dL (2.5-4.9); Potassium, Blood 4.6 mmol/L (3.5-5.5); Sodium, Blood 141 mmol/L (136-145); Vancomycin, Random 21.9 ug/mL
[2021-11-23 16:36] LABS: Vancomycin, Random 16.5 ug/mL
--- NOTE | 2021-11-23 16:56 | NUR ---
SHIFT SUMMARY POD 2 R GREAT HALLUX AMPUTATION PT SLEEPING THROUGH MOST OF SHIFT. HE REPORTS NOT SLEEPING WELL PREVIOUSLY. HE WILL AWAKEN AND ANSWER QUESTIONS APPROPRIATLY. DENIES PAIN IN FOOT. REPORTS SOME NUMBNESS TO RLE THAT HAS BEEN IMPROVING SINCE SURGERY. GRANDMA IN ROOM IS PRIMARY CAREGIVER ASSISTING PATIENT WITH VOIDING AND EATING, PT HAS HAD GOOD APPETITE AND IS REGULARILY VOIDING. IV ABX INFUSING PER ORDERS. DRESSING REMAINS CDI.
[2021-11-24 06:04] LABS: BASOPHILS ABSOLUTE AUTO 0.07 K/mm3 (0.00-0.23); BASOPHILS PERCENT AUTO 1 % (0-2); EOSINOPHILS ABSOLUTE AUTO 0.51 K/mm3 (0.00-0.68); EOSINOPHILS PERCENT AUTO 5 % (0-6); Hematocrit 39.1 % (37.0-53.0); Hemoglobin 13.1 g/dL (13.5-17.5); IMMATURE GRAN ABSOLUTE AUTO 0.02 K/mm3 (0.00-0.10); IMMATURE GRAN PERCENT AUTO 0 % (0-1); LYMPHOCYTES ABSOLUTE AUTO 1.95 K/mm3 (0.84-5.20); LYMPHOCYTES PERCENT AUTO 19 % (21-46); MONOCYTES ABSOLUTE AUTO 1.21 K/mm3 (0.16-1.47); MONOCYTES PERCENT AUTO 12 % (4-13); Mean Corpuscular HGB 30.3 pg (26.0-34.0); Mean Corpuscular HGB Conc 33.5 g/dL (31.5-36.5); Mean Corpuscular Volume 91 fL (80-100); Mean Platelet Volume 10.9 fL (9.1-12.4); NEUTROPHILS ABSOLUTE AUTO 6.62 K/mm3 (1.96-9.15); NEUTROPHILS PERCENT AUTO 64 % (41-73); Platelet Count 264 K/mm3 (150-400); RDW Coefficient Variation 11.9 % (11.7-14.2); RDW Standard Deviation 39.8 fL (35.1-46.3); Red Blood Cell Count 4.32 M/mm3 (4.30-5.90); White Blood Cell Count 10.38 K/mm3 (4.00-11.30)
[2021-11-24 06:19] LABS: Anion Gap 10 mmol/L (6-16); Blood Urea Nitrogen 42 mg/dL (8-24); Bun/Creatinine Ratio 16.6 (12.0-20.0); CO2, Blood 26 mmol/L (21-32); Calcium, Blood 8.9 mg/dL (8.5-10.1); Chloride, Blood 106 mmol/L (98-108); Creatinine, Blood 2.53 mg/dL (0.60-1.20); Glomerular Filtration Rate 36 (60-); Glucose, Blood 100 mg/dL (70-99); Phosphorus, Blood 4.3 mg/dL (2.5-4.9); Potassium, Blood 4.8 mmol/L (3.5-5.5); Sodium, Blood 142 mmol/L (136-145); Vancomycin, Random 26.9 ug/mL
--- NOTE | 2021-11-24 17:20 | NUR ---
SUMMARY NO ACUTE CHANGES T/O SHIFT. PT HAS SLEPT MOST OF DAY, GRANDMOTHER REPORTS WAKES IN EVENINGS. PT DOES WAKE TO VOICE AND ANSWER QUESTIONS. GRANDMOTHER AT BEDSIDE T/O DAY, PROVIDING ADLS. CALL LIGHT IN REACH.
--- NOTE | 2021-11-24 19:27 | NUR ---
report given to oncoming shift.
--- NOTE | 2021-11-25 03:49 | NUR ---
SHIFT SUMMARY S/P R HALLUX AMPUTATION WITH GAUZE AND CARITO WRAP. DRESSING REMAIN CDI. PT DENIES PAIN. DENIES N/T. TOLERATING PO INTAKE. DENIES N/V. IV INFUSING AT 75 MLS/HR. GRANDMA AT BEDSIDE AT THE BEGINNING OF SHIFT. PT AOX4. USE CALL LIGHT APPROPRIATELY. REPOSITIONED Q2. REDNESS ON COCCYX AREA, MEPLEX ON. PT ALSO HAD BM. VOIDING WITH URINAL WITH ASSISTANCE, INTERMITTENLY INCONTINENT, ATTENDS IN PLACE. CALL LIGHT WITHIN REACH. WILL PROVIDE REPORT TO ONCOMING NURSE.
[2021-11-25 06:32] LABS: BASOPHILS ABSOLUTE AUTO 0.06 K/mm3 (0.00-0.23); BASOPHILS PERCENT AUTO 1 % (0-2); EOSINOPHILS ABSOLUTE AUTO 0.45 K/mm3 (0.00-0.68); EOSINOPHILS PERCENT AUTO 5 % (0-6); Hematocrit 40.2 % (37.0-53.0); Hemoglobin 13.5 g/dL (13.5-17.5); IMMATURE GRAN ABSOLUTE AUTO 0.03 K/mm3 (0.00-0.10); IMMATURE GRAN PERCENT AUTO 0 % (0-1); LYMPHOCYTES ABSOLUTE AUTO 1.69 K/mm3 (0.84-5.20); LYMPHOCYTES PERCENT AUTO 17 % (21-46); MONOCYTES ABSOLUTE AUTO 1.13 K/mm3 (0.16-1.47); MONOCYTES PERCENT AUTO 11 % (4-13); Mean Corpuscular HGB 30.3 pg (26.0-34.0); Mean Corpuscular HGB Conc 33.6 g/dL (31.5-36.5); Mean Corpuscular Volume 90 fL (80-100); Mean Platelet Volume 10.5 fL (9.1-12.4); NEUTROPHILS ABSOLUTE AUTO 6.74 K/mm3 (1.96-9.15); NEUTROPHILS PERCENT AUTO 67 % (41-73); Platelet Count 259 K/mm3 (150-400); RDW Coefficient Variation 11.9 % (11.7-14.2); RDW Standard Deviation 39.6 fL (35.1-46.3); Red Blood Cell Count 4.46 M/mm3 (4.30-5.90)
[2021-11-25 06:51] LABS: Albumin, Blood 3.1 g/dL (3.4-5.0); Albumin/Globulin Ratio 0.8 (0.8-1.8); Bilirubin, Total 0.5 mg/dL (0.1-1.0); Bun/Creatinine Ratio 16.1 (12.0-20.0); Calcium, Blood 9.3 mg/dL (8.5-10.1); Creatinine, Blood 2.36 mg/dL (0.60-1.20); Globulin, Blood 3.8 g/dL (2.2-4.0); Potassium, Blood 4.7 mmol/L (3.5-5.5); Total Protein, Blood 6.9 g/dL (6.4-8.2)
[2021-11-25 06:59] LABS: Vancomycin, Random 13.7 ug/mL
--- NOTE | 2021-11-25 16:55 | NUR ---
SUMMARY NO ACUTE CHANGES T/O SHIFT. DRESSING TO FOOT INTACT. PT HAS SLEPT OFF AND ON DURING SHIFT. GRANDMOTHER AT [facility]. DRESSING TO R FOOT DRY AND INTACT. PLAN TO DC TOMORROW.
--- NOTE | 2021-11-26 04:29 | NUR ---
SHIFT SUMMARY POD#2 R HALLUX AMPUTATION, PATIENT IS W/C BOUND AT BASELINE. DRESSING WITH GAUZE AND CARITO WRAP C/D/I. PATIENT DENIES PAIN. TOELRATES PO INTAKE. INCONT. OF STOOL. REPOSITIONED THROUGHOUT SHIFT. VSS, CALL LIGHT IN REACH.
[2021-11-26 06:51] LABS: Bun/Creatinine Ratio 19.7 (12.0-20.0); Calcium, Blood 9.5 mg/dL (8.5-10.1); Creatinine, Blood 1.88 mg/dL (0.60-1.20); Potassium, Blood 5.1 mmol/L (3.5-5.5)
--- NOTE | 2021-11-26 09:44 | NUR ---
DR. TRIANA CONTACTED THIS RN LEFT VOICE MAIL REGUARDING PT DC WOUND DIRECTION, AWAITING CALL BACK.
[2021-11-26] MEDS ORDERED: BACTRIM DS TAB1 EAC6 PO (09:52)
--- NOTE | 2021-11-26 11:42 | NUR ---
DISCHARGE PT A&OX3, GRANDMOTHER @ BEDSIDE FOR D/C DIRECTION. PT PROVIDED W/ WRITTEN AND VERBAL DIRECTION, VERBALIZED UNDERSTANDING. PT BELONGINGS IN TOW, PT LIFT TO PERSONAL POWER CHAIR. MED TRANSPORT PROVIDED. CHARGE ASSIST W/ DC PAPERWORK
== END 2021-11-26 13:54 | disposition home or self-care (01) | DRG 463 ==
LOC: ER 08:39 → SURS 15:45
PROVIDERS: Emergency Medicine; Internal Medicine; Podiatrist Foot & Ankle Surgery; ADMIT Family Medicine
PROC: 0Y6P0Z1 Detachment at Right 1st Toe, High, Open Approach (ICD-10-PCS; 2021-11-21)
PROC: 0JBQ0ZZ Excision of Right Foot Subcutaneous Tissue and Fascia, Open Approach (ICD-10-PCS; principal; 2021-11-21 13:30)
DX: M86.8X7 Other osteomyelitis, ankle and foot (principal); N17.0 Acute kidney failure with tubular necrosis; L03.115 Cellulitis of right lower limb; L97.516 Non-pressure chronic ulcer of other part of right foot with bone involvement without evidence of necrosis; G80.9 Cerebral palsy, unspecified; J45.909 Unspecified asthma, uncomplicated; G47.30 Sleep apnea, unspecified; F41.8 Other specified anxiety disorders; N18.9 Chronic kidney disease, unspecified; K44.9 Diaphragmatic hernia without obstruction or gangrene; K42.9 Umbilical hernia without obstruction or gangrene; R61 Generalized hyperhidrosis; B95.62 Methicillin resistant Staphylococcus aureus infection as the cause of diseases classified elsewhere; B96.89 Other specified bacterial agents as the cause of diseases classified elsewhere; J98.4 Other disorders of lung; Z96.643 Presence of artificial hip joint, bilateral; Z98.890 Other specified postprocedural states; Z79.899 Other long term (current) drug therapy; Z79.51 Long term (current) use of inhaled steroids; Z87.891 Personal history of nicotine dependence; Z91.040 Latex allergy status; Z88.8 Allergy status to other drugs, medicaments and biological substances; Z98.1 Arthrodesis status
CPT/HCPCS: 36415; 73620; 73700; 80048; 80053; 80069; 80202; 82565; 85025; 85651; 86141; 87070; 87075; 87077; 87147; 87186; 87205; 88305; 88311; 93926; 94760; 96365; 99285-25; A9270; J1650; J2001; J2250; J2543; J2704; J2795; J3010; J3370; J7050; J7120

== ENCOUNTER 2022-01-05 10:41 | Day surgery (SDC) | payer OTHER ==
[~2022-01-05] VITALS: Ht 157.5 cm; Wt 81.7 kg
[~2022-01-05 10:41] MED LIST changes: +BACTRIM DS TAB1 EAC6 PO
[2022-01-05] MEDS ORDERED: ALBU90OI INH (11:30)
[2022-01-05] MEDS ORDERED: DIPATR PO (11:31)
[2022-01-05] MEDS ORDERED: ESCI20 PO (11:31)
[2022-01-05] MEDS ORDERED: DICLOFENAC SOD100 GM TP (11:31)
[2022-01-05] MEDS ORDERED: Buspirone HCl15 MG PO (11:31)
[2022-01-05] MEDS ORDERED: HYDPAM50 PO (11:32)
[2022-01-05] MEDS ORDERED: MAGNESIUM OXID500 MG PO (11:32)
[2022-01-05] MEDS ORDERED: OMEP20ER PO (11:33)
[2022-01-05] MEDS ORDERED: ONDA4 PO (11:33)
--- NOTE | 2022-01-05 16:06 | NUR ---
01/05/22 1606 Ricardo Newman PT'S O2 SATS FREQUENTLY DROPPED INTO 80'S AND 70'S INITIALLY IN STEP DOWN. AFTER PROVIDING INCENTIVE SPIROMETERY AND MOVING PT FROM GURNEY TO WHEELCHAIR, HE WAS ABLE TO MAINTAIN O2 SATS IN THE UPPER 80'S AND 90'S WITH ROOM AIR. DR. NOLEN WAS CONSTULED AND APPROVED THE PATIENT'S DISCHARGE WITH O2 SATS IN THE HIGH 80'S. PT'S O2 SATS REMAINED IN HIGH 80'S AND 90'S AT TIME OF DISCHARGE. PT DESCRIBED HIS PAIN TOLERABLE AND EXPRESSED READINESS TO RETURN HOME.
== END 2022-01-05 15:48 | disposition home or self-care (01) ==
LOC: ORSCSDS 10:41
PROVIDERS: Podiatrist Foot & Ankle Surgery
PROC: 0Y6M0ZB Detachment at Right Foot, Partial 2nd Ray, Open Approach (ICD-10-PCS; principal; 2022-01-05 12:40)
PROC: 0Y6M0ZC Detachment at Right Foot, Partial 3rd Ray, Open Approach (ICD-10-PCS; principal; 2022-01-05 12:40)
PROC: 0Y6M0ZF Detachment at Right Foot, Partial 5th Ray, Open Approach (ICD-10-PCS; principal; 2022-01-05 12:40)
PROC: 0Y6M0Z9 Detachment at Right Foot, Partial 1st Ray, Open Approach (ICD-10-PCS; principal; 2022-01-05 12:40)
PROC: 0Y6M0ZD Detachment at Right Foot, Partial 4th Ray, Open Approach (ICD-10-PCS; principal; 2022-01-05 12:40)
DX: L97.512 Non-pressure chronic ulcer of other part of right foot with fat layer exposed (principal); G47.33 Obstructive sleep apnea (adult) (pediatric); G80.9 Cerebral palsy, unspecified; K21.9 Gastro-esophageal reflux disease without esophagitis; Z79.899 Other long term (current) drug therapy
CPT/HCPCS: 88307; A9270; J0690; J1100; J1885; J2001; J2250; J2405; J2704; J2795; J3010; J7120

== ENCOUNTER → 2024-12-01 | Outpatient (CLI) | payer OTHER ==
[~2024-12-01] MED LIST changes: +Buspirone HCl15 MG PO; +DICLOFENAC SOD100 GM TP; +HYDPAM50 PO; +OMEP20ER PO; +ONDA4 PO
== END | disposition home or self-care (01) ==
LOC: LAB SHORT 14:55 → LAB 14:55
DX: R30.0 Dysuria (principal)
CPT/HCPCS: 87086

== ENCOUNTER → 2024-12-01 | Outpatient (CLI) | payer OTHER ==
[2024-12-01 17:34] LABS: Source, Urine Clean Catch
[2024-12-01 17:52] LABS: Red Blood Cells, Urine TNTC /hpf (0-2)
== END | disposition home or self-care (01) ==
LOC: LAB 17:24 → LAB SHORT 17:24
PROVIDERS: Family Medicine
DX: R30.0 Dysuria (principal)
CPT/HCPCS: 81015

== ENCOUNTER 2025-01-09 15:08 | Inpatient (IN) | payer OTHER ==
[~2025-01-09] VITALS: Ht 154.9 cm; Wt 95.2 kg
[2025-01-09 15:54] LABS: BASOPHILS ABSOLUTE AUTO 0.07 K/mm3 (0.00-0.23); BASOPHILS PERCENT AUTO 1 % (0-2); EOSINOPHILS ABSOLUTE AUTO 0.01 K/mm3 (0.00-0.68); EOSINOPHILS PERCENT AUTO 0 % (0-6); Hematocrit 48.2 % (37.0-53.0); Hemoglobin 16.2 g/dL (13.5-17.5); IMMATURE GRAN ABSOLUTE AUTO 0.05 K/mm3 (0.00-0.10); IMMATURE GRAN PERCENT AUTO 0 % (0-1); LYMPHOCYTES ABSOLUTE AUTO 1.54 K/mm3 (0.84-5.20); LYMPHOCYTES PERCENT AUTO 11 % (21-46); MONOCYTES ABSOLUTE AUTO 0.87 K/mm3 (0.16-1.47); MONOCYTES PERCENT AUTO 6 % (4-13); Mean Corpuscular HGB Conc 33.6 g/dL (31.5-36.5); Mean Corpuscular Volume 88 fL (80-100); NEUTROPHILS ABSOLUTE AUTO 11.79 K/mm3 (1.96-9.15); NEUTROPHILS PERCENT AUTO 82 % (41-73); NRBC ABSOLUTE 0.00 K/mm3 (0.00-0.02); NRBC Auto 0.0 /100 WBC (0.0-0.2); Platelet Count 307 K/mm3 (150-400); RDW Coefficient Variation 13.1 % (11.7-14.2); RDW Standard Deviation 42.3 fL (35.1-46.3)
[2025-01-09 16:15] LABS: Alanine Aminotransfer (ALT/SGP 67.0 U/L (12-78); Albumin, Blood 4.2 g/dL (3.4-5.0); Albumin/Globulin Ratio 1.1 (0.8-1.8); Anion Gap 9.0 mmol/L (3-11); Aspartate Aminotrans (AST/SGOT 27.0 U/L (12-37); Bilirubin, Total 0.9 mg/dL (0.1-1.0); Blood Urea Nitrogen 13.0 mg/dL (8-24); CO2, Blood 25.0 mmol/L (21-32); Calcium, Blood 9.5 mg/dL (8.5-10.1); Chloride, Blood 108.0 mmol/L (98-108); Creatinine, Blood 0.59 mg/dL (0.60-1.20); Globulin, Blood 3.9 g/dL (2.2-4.0); Glucose, Blood 116.0 mg/dL (70-99); Potassium, Blood 4.0 mmol/L (3.5-5.5); Sodium, Blood 138.0 mmol/L (136-145); Total Protein, Blood 8.1 g/dL (6.4-8.2)
[2025-01-09] MEDS ORDERED: Ketorolac Tromethamine 15mg Vial IV ONE (16:40)
[2025-01-09] MEDS ORDERED: NS 1,000 ML IV SCH ×2 (16:40→19:45)
[2025-01-09] MEDS ORDERED: Ondansetron HCl 2 MG / ML 2ML Vial IV ONE (16:45)
[2025-01-09 17:15] LABS: Source, Urine Clean Catch
[2025-01-09 17:22] LABS: Bilirubin, Urine Neg (Neg); Color, Urine Yellow (P-Yellow); Glucose Qualitative, Urine Neg (Neg); Ketones, Urine Neg (Neg); Leukocyte Esterase, Urine 2+ (Neg); Protein, Urine 2+ (Neg); Specific Gravity, Urine 1.015 (1.003-1.022); Urobilinogen, Urine NORM (Normal)
[2025-01-09 17:30] LABS: Red Blood Cells, Urine 50-100 /hpf (0-2); White Blood Cells, Urine 25-50 /hpf (0-5)
[2025-01-09] MEDS ORDERED: Morphine Sulfate 4 MG/1 ML Injection IV PRN (19:40)
[2025-01-09] MEDS ORDERED: FLU VACC TS2025-26(6MOS UP)/PF 45 MCG/0.5 ML SYRINGE IM SCH (19:40)
[2025-01-09] MEDS ORDERED: Ondansetron HCl 2 MG / ML 2ML Vial IV PRN (19:45)
[2025-01-09] MEDS ORDERED: Albuterol 2.5 MG/3 ML VIAL INH PRN (19:45)
[2025-01-09] MEDS ORDERED: CefTRIAXone Sodium 1,000 MG in NS 100 ML IV SCH (20:00)
[2025-01-09] MEDS ORDERED: Ketorolac Tromethamine 15mg Vial IV PRN (20:00)
[2025-01-09] MEDS ORDERED: Lactobacil 2-S.Thermo-Bifido 1 1 Cap PO SCH (21:00)
[2025-01-09 22:16] VITALS: BP 126/80
[2025-01-09] MEDS ORDERED: VITAMIN D5000 UNIT PO (22:58)
[2025-01-09] MEDS ORDERED: VITAMIN C125 MG PO (22:59)
[2025-01-09] MEDS ORDERED: TAMS.4ER PO (22:59)
[2025-01-09] MEDS ORDERED: Voltaren100 GM TOP (23:00)
[2025-01-09] MEDS ORDERED: ONDA4 PO (23:00)
[2025-01-09] MEDS ORDERED: BACL10 PO (23:01)
[2025-01-09] MEDS ORDERED: IBUP600 PO (23:02)
[2025-01-09] MEDS ORDERED: MELATONIN5 M1 PO (23:02)
[2025-01-10] VITALS (17 sets, daily range): BP systolic 103–141; BP diastolic 71–116
[2025-01-10] MEDS ORDERED: Hair, Skin & N1 EACH PO (00:08)
--- NOTE | 2025-01-10 05:07 | NUR ---
ASSUMED CARE AT 2210. A/Ox4, VSS ON RA. PT REPORTS 7-9/10 L FLANK AND BACK PAIN, MANAGED WITH PRN TORADOL AND MORPHINE. GERALDINE LIFT FOR TRANSFERS. AIR MATTRESS OVERLAY IN PLACE. SAFETY PRECAUTIONS IN PLACE, CALL LIGHT IN REACH. MED REC COMPLETED.
[2025-01-10 05:23] LABS: BASOPHILS ABSOLUTE AUTO 0.07 K/mm3 (0.00-0.23); BASOPHILS PERCENT AUTO 1 % (0-2); EOSINOPHILS ABSOLUTE AUTO 0.18 K/mm3 (0.00-0.68); EOSINOPHILS PERCENT AUTO 2 % (0-6); Hematocrit 43.5 % (37.0-53.0); Hemoglobin 14.2 g/dL (13.5-17.5); IMMATURE GRAN ABSOLUTE AUTO 0.03 K/mm3 (0.00-0.10); IMMATURE GRAN PERCENT AUTO 0 % (0-1); LYMPHOCYTES ABSOLUTE AUTO 3.22 K/mm3 (0.84-5.20); LYMPHOCYTES PERCENT AUTO 30 % (21-46); MONOCYTES ABSOLUTE AUTO 1.29 K/mm3 (0.16-1.47); MONOCYTES PERCENT AUTO 12 % (4-13); Mean Corpuscular HGB Conc 32.6 g/dL (31.5-36.5); Mean Corpuscular Volume 91 fL (80-100); NEUTROPHILS ABSOLUTE AUTO 5.83 K/mm3 (1.96-9.15); NEUTROPHILS PERCENT AUTO 55 % (41-73); NRBC ABSOLUTE 0.00 K/mm3 (0.00-0.02); NRBC Auto 0.0 /100 WBC (0.0-0.2); Platelet Count 252 K/mm3 (150-400); RDW Coefficient Variation 13.2 % (11.7-14.2); RDW Standard Deviation 44.1 fL (35.1-46.3)
[2025-01-10 05:46] LABS: Alanine Aminotransfer (ALT/SGP 51.0 U/L (12-78); Albumin, Blood 3.4 g/dL (3.4-5.0); Albumin/Globulin Ratio 1.1 (0.8-1.8); Anion Gap 6.0 mmol/L (3-11); Aspartate Aminotrans (AST/SGOT 17.0 U/L (12-37); Bilirubin, Total 0.4 mg/dL (0.1-1.0); Blood Urea Nitrogen 14.0 mg/dL (8-24); CO2, Blood 29.0 mmol/L (21-32); Calcium, Blood 8.8 mg/dL (8.5-10.1); Chloride, Blood 110.0 mmol/L (98-108); Creatinine, Blood 0.69 mg/dL (0.60-1.20); Globulin, Blood 3.1 g/dL (2.2-4.0); Glucose, Blood 121.0 mg/dL (70-99); Magnesium, Blood 2.0 mg/dL (1.6-2.4); Potassium, Blood 3.7 mmol/L (3.5-5.5); Sodium, Blood 141.0 mmol/L (136-145); Total Protein, Blood 6.5 g/dL (6.4-8.2)
[2025-01-10] MEDS ORDERED: Enoxaparin 40 MG/0.4 ML SYR SC SCH (09:00)
--- NOTE | 2025-01-10 18:28 | NUR ---
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 PAIN MANAGED WITH TORADOL.
[2025-01-10] MEDS ORDERED: FentaNYL Citrate 50 MCG/ML 2 ML Injection ONE (19:40)
[2025-01-10] MEDS ORDERED: Midazolam HCl 1MG / ML 2ML Vial ONE (19:40)
--- NOTE | 2025-01-10 20:07 | NUR ---
PT TRANSPORTED TO OR VIA BED AT 1999. NPO HAD BEEN CONTINUED THROUGHOUT SHIFT. MOTHER ACCOMPANIED TO OR.
[2025-01-10] MEDS ORDERED: Rocuronium Bromide 10 MG/ML 5ML Injection IV ONE (20:11)
[2025-01-10] MEDS ORDERED: SuccINYLCHOLINE Chloride 100 MG/5 ML 5MLSYR ONE (20:27)
[2025-01-10] MEDS ORDERED: Ondansetron HCl 2 MG / ML 2ML Vial IV PRN (20:55)
[2025-01-10] MEDS ORDERED: HYDROmorphone HCl/Pf 1MG SYR IV PRN (20:55)
[2025-01-10] MEDS ORDERED: FentaNYL Citrate 50 MCG/ML 2 ML Injection IV PRN ×3 (20:55)
[2025-01-10] MEDS ORDERED: Metoclopramide HCl 5MG / ML 2ML Vial IV PRN (20:55)
--- NOTE | 2025-01-10 20:55 | NUR ---
01/10/252054 Verito Cerna NO PREOP ANTIBIOTICS.
--- NOTE | 2025-01-10 21:33 | NUR ---
LATE ENTRY: PATIENT TRANSPORTED WITH ANETHESIA, OR CREW RT ON BIPAP WITH NASAL TRUMPET IN PLACE TO ICU 15 FOR RECOVERY. WITH 100% O2. DISCUSSED WITH aNETHESIA PLAN FOR PATIENT AND NEED FOR STATUS CHANGE. PER dR. Snyder WISHES TO HAVE THE PATIENT EVALUATED BY PCP. DOES NOT WISH TO CALL DR. CHUNG TO DISCUSS, FEEL HOSPITALIST APPROPRIATE INTERVENTION AT THIS TIME.
--- NOTE | 2025-01-10 21:40 | NUR ---
LATE ENTRY. aNETHESIA OUT. O2 DECREASED TO 60% BY RT, OTHERWISE REMAINS ON BIPAP . NASAL TRUMPET REMAINS IN PLACE.PATEINT REMAINS SEDATED.
--- NOTE | 2025-01-10 22:16 | NUR ---
LATE ENTRY OANH SIGN CALLED CHARGE NURSE EDENILSON GILBERT BACK AND SPOKE WITH HER. ORDER PLACED BY ICU CHARGE AND RT NOTIFIED OF NEED FOR VBG.
--- NOTE | 2025-01-10 22:26 | NUR ---
2209. ABLE TO REMOVE NASAL TRUMPET. BIPAP SETTINGS REMAIN UNCHANGED. ATTEMPTED TO CALL OANH WAY MULTIPLE TIMES WITH RESULTS. ICU CHARGE ALSO ATTEMPTING TO REACH. PATINET DROWSY STILL BUT C/O NEED TO URINATE AND BIPAP MASK. EXPLAINED NEED FOR PRESENCE AT THIS TIME.
--- NOTE | 2025-01-10 23:22 | NUR ---
NURSING ELDERLY CAREGIVER WITHOUT BED IN PCU, AWAITING IT TO BE CLEANED. NO STATUS CHANGE YET. PATIENT AWAKENING, REQUESTS MASK OFF. AWITING RT ASSISTANCE STILL.
--- NOTE | 2025-01-10 23:36 | NUR ---
PATIENT OFF BIPAP FOR APPROX 1 MINUTE BEFORE DESATS TO LESS THAN 90%. REPLACED BIPAP WITH RT. DISCUSSED DECREASING PRESSURE TO IMPROVE TOLERANCE. RT FEELS BEETTER TO KEEP PRESSURES, DECREASED O2 TO 50%. VBG FAILED DUE TO LACK OF BLOOD. RE-DRAW DONE.
[2025-01-10 23:42] LABS: pH Blood Venous 7.33 (7.34-7.37)
--- NOTE | 2025-01-10 23:52 | NUR ---
NURSING BALLISTICS TESTER ABLE TO GET AHOLD OF HOPSITALIST SENIOR ANDROID SOFTWARE ENGINEER. ABLE TO RECEIVE TRANSFER TO PCU ORDERS.
--- NOTE | 2025-01-11 00:34 | NUR ---
PATIENT RESTING UNLESS DISTURBED, HR DECREASED TO 50'S WITH SLEEP BUT INCREASES IMMEDIATLY UPON AROUSAL. PATIENT TO TRANSFER TO PCU 10. AWAITING RT TO ASSIST WITH TRANSFER WITH BIPAP. TO GIVE REPORT TO Macie MANZANARES.
[2025-01-11 00:58] VITALS: BP 110/72
[2025-01-11 03:18] VITALS: BP 107/77
--- NOTE | 2025-01-11 05:09 | NUR ---
PT WAS TRANSFERRED FROM ICU RECOVERY S/P CYSTOSCOPY WITH LEFT URETER STENT PLACEMENT. PT WAS ON BIPAP AND UNABLE TO MAINTAIN SPO2>92% WHILE OFF BIPAP. MOTHER AND GRANDMOTHER AT BEDSIDE. MOTHER LEFT AND GRANDMOTHER STAYED AT BEDSIDE. PT BECAME MORE AWAKE AND EVENTUALLY WAS ABLE TO MAINTAIN SPO2>92% ON 2L VIA NASAL CANNULA. PT ALERT AND ORIENTED X4. ABLE TO EXPRESS NEEDS. DRANK WATER WITHOUT COUGHING. HANNAH IS PATENT AND DRAINING PINK/RED URINE. BED IS LOCKED IN LOWEST POSITION. CALL LIGHT WITHIN REACH. PT'S ELECTRIC WHEELCHAIR AT BEDSIDE.
[2025-01-11 08:04] VITALS: BP 118/82
[2025-01-11 08:41] LABS: BASOPHILS ABSOLUTE AUTO 0.04 K/mm3 (0.00-0.23); BASOPHILS PERCENT AUTO 0 % (0-2); EOSINOPHILS ABSOLUTE AUTO 0.06 K/mm3 (0.00-0.68); EOSINOPHILS PERCENT AUTO 1 % (0-6); Hematocrit 44.3 % (37.0-53.0); Hemoglobin 14.2 g/dL (13.5-17.5); IMMATURE GRAN ABSOLUTE AUTO 0.04 K/mm3 (0.00-0.10); IMMATURE GRAN PERCENT AUTO 0 % (0-1); LYMPHOCYTES ABSOLUTE AUTO 1.62 K/mm3 (0.84-5.20); LYMPHOCYTES PERCENT AUTO 17 % (21-46); MONOCYTES ABSOLUTE AUTO 0.77 K/mm3 (0.16-1.47); MONOCYTES PERCENT AUTO 8 % (4-13); Mean Corpuscular HGB Conc 32.1 g/dL (31.5-36.5); Mean Corpuscular Volume 93 fL (80-100); NEUTROPHILS ABSOLUTE AUTO 6.96 K/mm3 (1.96-9.15); NEUTROPHILS PERCENT AUTO 73 % (41-73); NRBC ABSOLUTE 0.00 K/mm3 (0.00-0.02); NRBC Auto 0.0 /100 WBC (0.0-0.2); Platelet Count 220 K/mm3 (150-400); RDW Coefficient Variation 13.2 % (11.7-14.2); RDW Standard Deviation 45.1 fL (35.1-46.3)
[2025-01-11 08:56] LABS: Alanine Aminotransfer (ALT/SGP 42.0 U/L (12-78); Albumin, Blood 3.3 g/dL (3.4-5.0); Albumin/Globulin Ratio 1.0 (0.8-1.8); Anion Gap 6.0 mmol/L (3-11); Aspartate Aminotrans (AST/SGOT 15.0 U/L (12-37); Bilirubin, Total 0.8 mg/dL (0.1-1.0); Blood Urea Nitrogen 10.0 mg/dL (8-24); CO2, Blood 30.0 mmol/L (21-32); Calcium, Blood 8.8 mg/dL (8.5-10.1); Chloride, Blood 107.0 mmol/L (98-108); Creatinine, Blood 0.57 mg/dL (0.60-1.20); Globulin, Blood 3.4 g/dL (2.2-4.0); Glucose, Blood 124.0 mg/dL (70-99); Potassium, Blood 3.8 mmol/L (3.5-5.5); Sodium, Blood 139.0 mmol/L (136-145); Total Protein, Blood 6.7 g/dL (6.4-8.2)
[2025-01-11 11:03] VITALS: BP 115/92
--- NOTE | 2025-01-11 13:27 | NUR ---
UPDATE: Patient was awake lying in bed talking with staff. His oxygen saturations dropped down to 87, his saturations are fluctuating from 87 to 90. Roberto RT was also at bedside.
[2025-01-11] MEDS ORDERED: SULTRIDS PO (14:09)
--- NOTE | 2025-01-11 16:30 | NUR ---
PT DISCHARGED TO HOME WITH DISCHARGE ORDERS. PT TO CONTINUE PO ABX FOR 3 MORE DAYS HARD PRESCRIPTION SENT WITH THE PT'S MOM. HANNAH CATHETER REMOVED PT ABLE TO VOID 3 TIMES PWITH NO ISSUES PRIOR TO LEAVING. ALL DISCHARGE INFORMATION DISCLOSED WITH THE PT'S MOM. ALL BELONGINGS SENT WITH THE PT. ACCOMPANIED VIA MOTORIZED PERSONALIZED WHEELCHAIR.
== END 2025-01-11 16:20 | disposition home or self-care (01) | DRG 659 ==
LOC: ER 15:08 → MEDS 19:37 → PCU 19:37 → ER 19:37 → MEDS 22:06 → PCU 01-11 01:16
PROVIDERS: Family Medicine; Nurse Practitioner Acute Care; Student in an Organized Health Care Education/Training Program; ADMIT Student in an Organized Health Care Education/Training Program
PROC: 0T768DZ Dilation of Right Ureter with Intraluminal Device, Via Natural or Artificial Opening Endoscopic (ICD-10-PCS; principal; 2025-01-11)
PROC: BT1D1ZZ Fluoroscopy of Right Kidney, Ureter and Bladder using Low Osmolar Contrast (ICD-10-PCS; 2025-01-11)
DX: N13.6 Pyonephrosis (principal); G80.0 Spastic quadriplegic cerebral palsy; Z68.43 Body mass index [BMI] 50.0-59.9, adult; K21.9 Gastro-esophageal reflux disease without esophagitis; K44.9 Diaphragmatic hernia without obstruction or gangrene; E78.5 Hyperlipidemia, unspecified; F41.9 Anxiety disorder, unspecified; J45.20 Mild intermittent asthma, uncomplicated; E86.0 Dehydration; N17.9 Acute kidney failure, unspecified; N18.9 Chronic kidney disease, unspecified; R51.9 Headache, unspecified; E66.01 Morbid (severe) obesity due to excess calories; Z88.8 Allergy status to other drugs, medicaments and biological substances; Z79.899 Other long term (current) drug therapy
CPT/HCPCS: 36415; 74177; 80053; 81001; 82803; 83690; 83735; 85025; 87070; 87075; 87086; 87205; 94660; 94760; 94762; 96374-59; 96375; 99285-25; A4340; A9270; C1758; C1769; J0330; J0696; J1650; J1885; J2250; J2270; J2405; J2704; J3010; J7030; Q9967